=== PATIENT | male | born 1975 | race Caucasian/White ===

== ENCOUNTER 2018-06-02 19:02 | Inpatient (IN) ==
[2018-06-02 20:00] LABS: Basophils % 0.2 %; Eosinophils # 0.1 K/mcL (0.0-0.6); Eosinophils % 0.8 %; Hematocrit 32.9 % (37.5-50.1); Hemoglobin 10.8 g/dL (12.9-16.9); Immature Granulocytes % 0.3 % (0-4); Lymphocytes # 1.1 K/mcL (0.6-4.6); Lymphocytes % 12.9 %; Mean Corpuscular HGB Conc 32.8 g/dL (31.6-35.5); Mean Corpuscular Hemoglobin 28.1 pg (28.0-33.3); Mean Corpuscular Volume 85.5 fL (83.0-100.0); Mean Platelet Volume 9.2 fL (9.4-12.4); Monocytes # 0.9 K/mcL (0.0-1.3); Monocytes % 10.5 %; Neutrophils # 6.5 K/mcL (1.6-8.9); Platelet Count 364 K/mcL (140-400); Red Blood Count 3.85 M/mcL (4.19-5.50); Red Cell Distribution Width 13.3 % (11.5-14.5); Segmented Neutrophils % 75.3 %
[2018-06-02 20:02] LABS: INR 1.3; Prothrombin Time 14.3 Seconds (9.4-12.1)
[2018-06-02 20:05] LABS: Activated Partial Thrombo Time 33.7 Seconds (26.0-36.0)
[2018-06-02 20:46] LABS: Troponin I < 0.03 ng/mL (< 0.04)
[2018-06-02 21:04] LABS: Alanine Aminotransferase 77 Units/L (7-52); Albumin 3.3 g/dL (3.5-5.7); Albumin/Globulin Ratio 0.7 (1.1-2.2); Alkaline Phosphatase 107 Units/L (34-104); Aspartate Amino Transferase 62 Units/L (13-39); BUN/Creatinine Ratio 21 (6-26); Bilirubin,Total 0.4 mg/dL (0.3-1.0); Blood Urea Nitrogen 12 mg/dL (6-20); Calcium 9.2 mg/dL (8.6-10.3); Carbon Dioxide 26 mEq/L (23-29); Chloride 93 mEq/L (98-107); Globulin 4.5 g/dL (2.4-3.5); Glucose 91 mg/dL (70-105); Osmolality,Calculated 267 (280-300); Potassium 4.2 mEq/L (3.5-5.1); Sodium 129 mEq/L (136-145); Total Protein 7.8 g/dL (6.4-8.9); eGFR For African Americans > 60 (> 60); eGFR For Non-African Americans > 60 (> 60)
[2018-06-02] MEDS ORDERED: Naloxone 0.4 MG/ML INJ IVP PRN (22:48)
[2018-06-02] MEDS ORDERED: Vancomycin 1,000 MG VIAL ONE (22:49)
[2018-06-02] MEDS ORDERED: Water for inj. (sterile) 20 ML 20 ML IV ONE (22:49)
[2018-06-02] MEDS ORDERED: 0.9 % Sodium Chloride 250 ML ONE (22:49)
--- NOTE | 2018-06-02 22:49 | Emergency Department Note ---
Disposition Clinical Impression: Empyema of lung Disposition: Admitted As Inpatient Referrals: Jerrell Goodman MD [Primary Care Provider] - General Adult HPI - General Chief complaint: ED Shortness of Breath/Dyspnea Stated complaint: Lung Abscess per CT needs admitted for surgery Time Seen by Provider: 06/02/18 20:33 Source: patient Limitations: no limitations - History of Present Illness Pain Scale: 0 - Related Data Home Medications Medication Instructions Recorded Confirmed QVAR 40 mcg 11/07/15 Ventolin Hfa 11/07/15 Previous Rx's Medication Instructions Recorded GuaiFENesin ER [Mucinex] 1 - 2 tab PO BID PRN #40 tab 12/16/15 Hydrocodone/Acetaminophen [[place] 1 each PO Q4H PRN #4 tablet 12/16/15 5-325 Tablet] Polymyxn-B/Trimeth Opth Drops 1 drop LEFT EYE Q3H #10 ml 12/16/15 [Polytrim Opth Drops] Albuterol Sulfate [Ventolin Hfa] 2 inh IH 4-6XD PRN #1 hfa.aer.ad 08/12/16 Albuterol Sulfate [Albuterol 2 puff IH Q4HR PRN #1 hfa.aer.ad 09/10/16 Inhaler] Azithromycin [Zithromax] 250 mg PO DAILY #6 tablet 09/10/16 predniSONE [Prednisone] 50 mg PO DAILY #5 tablet 09/10/16 Albuterol Sulfate [Albuterol 2 puff IH Q4HR #1 hfa.aer.ad 11/06/16 Inhaler] predniSONE [PredniSONE] 10 mg PO DAILY #7 tablet 11/06/16 Albuterol Sulfate [Ventolin Hfa] 1 - 2 puff IH Q6HR #1 hfa.aer.ad 11/19/16 Azithromycin [Azithromycin 6-Tab 250 mg PO PER PKG DI #6 tab 11/19/16 Pack] Cetirizine HCl/Pseudoephedrine 1 each PO BID #14 tab.er.12h 11/19/16 [Cetirizine-Pse ER 5-120 mg Tab] predniSONE [PredniSONE] 60 mg PO DAILY 5 Days tablet 11/19/16 Albuterol Sulfate [Albuterol 2 puff IH Q4HR #1 hfa.aer.ad 11/24/16 Inhaler] EPINEPHrine [Epipen] 0.3 mg IM ONCE PRN #1 kit 11/25/16 Famotidine [Pepcid] 20 mg PO BID 30 Days tablet 11/25/16 Loratadine [Claritin] 5 mg PO DAILY 30 Days tablet 11/25/16 Azithromycin [Zithromax] 1 applic PO DAILY #6 tablet 12/20/16 Beclomethasone Diprop 80mcg [Qvar 2 puff IH BID #1 inhaler 12/20/16 80 mcg] Famotidine [Heartburn Prevention] 20 mg PO DAILY #30 tablet 12/20/16 PredniSONE [Deltasone] 20 mg PO DAILY #15 tablet 12/20/16 Clindamycin [Cleocin] 450 mg PO Q6HR 10 Days capsule 09/22/17 Ibuprofen [Motrin] 600 mg PO Q6HR PRN 7 Days tab 09/22/17 Cephalexin [Keflex] 500 mg PO QID #28 capsule 09/24/17 Sulfamethoxazole/Trimeth DS 1 each PO BID #14 tablet 09/24/17 [Bactrim DS] Naproxen [Naprosyn] 500 mg PO BID PRN #15 tablet 10/23/17 Albuterol Sulfate [Albuterol 2 puff IH Q4HR #1 puff 04/24/18 Inhaler] Azithromycin [Azithromycin 6-Tab 250 mg PO PER PKG DI #6 tab 04/24/18 Pack] Ibuprofen [Motrin] 600 mg PO Q6HR PRN #30 tab 04/24/18 methylPREDNISolone [Medrol] 1 each PO DAILY #1 pack 04/24/18 Allergies Allergy/AdvReac Type Severity Reaction Status Date / Time Penicillins AdvReac Rash Verified 06/02/18 19:19 Past Medical History - Past Medical History Medical history: Reports: asthma Surgical history: Reports: other Psychiatric history: Reports: no psych history - Social History Smoking Status: Light tobacco smoker Smokeless Tobacco Status: No Alcohol use: Reports: rarely Drug use: Reports: opiates, IV Drug Use Physical Exam - General Limitations: no limitations General appearance: alert, in no apparent distress Course - Reevaluation(s) Reevaluation #1: Attestation note I did independently examine and verified the physical examination findings evaluation workup and disposition of this patient. We had independent face-to- face examination and discussion. The patient was seen with the Yamilet Coles I examined this patient and my medical decision-making was reviewed with the Resident Physician/PIPE FITTER GAS PIPE/PA. I agree with the documented findings, disposition and treatment plan as described except to the extent set forth below. Briefly: 42-year-old male had a chest CT done this morning which showed a right hemithorax large empyema. Radiology gave this report to his primary care provider at about 11:13 AM. Patient comes in with mild shortness breath and cough history of hepatitis C and former IV drug user set is been clean for 3 months[address] Review[address] findings patient has labs which are essentially within normal limits will consult surgery and pulmonology to determine course of action and patient will be admitted to the hospitalist for IV antibiotics and further evaluation and treatment. Providing 30 minutes medical care service for this patient. Time: 21:39 Vital Signs Temperature 101.3 F H 06/02/18 19:20 Pulse Rate 74 06/02/18 19:20 Respiratory Rate 20 06/02/18 19:20 Blood Pressure 120/69 06/02/18 19:20 O2 Sat by Pulse Oximetry 95 06/02/18 19:20 Temperature 100.8 F H 06/02/18 20:22 Pulse Rate 67 06/02/18 20:22 Respiratory Rate 20 06/02/18 20:22 Blood Pressure 115/85 06/02/18 20:22 O2 Sat by Pulse Oximetry 95 06/02/18 20:22 Oxygen Delivery Oxygen Delivery Room Air Medical Decision Making - Lab Data Result diagrams: 06/02/18 19:44 06/02/18 19:44 Lab Results 06/02/18 06/02/18 06/02/18 Range/Units 19:44 19:44 19:44 WBC 8.7 (4.3-11.1) K/mcL RBC 3.85 L (4.19-5.50) M/mcL Hgb 10.8 L (12.9-16.9) g/dL Hct 32.9 L (37.5-50.1) % MCV 85.5 (83.0-100.0) fL MCH 28.1 (28.0-33.3) pg MCHC 32.8 (31.6-35.5) g/dL RDW 13.3 (11.5-14.5) % Plt Count 364 (140-400) K/mcL MPV 9.2 L (9.4-12.4) fL Immature Gran % 0.3 (0-4) % Seg Neutrophils % 75.3 % Lymphocytes % 12.9 % Monocytes % 10.5 % Eosinophils % 0.8 % Basophils % 0.2 % Neutrophils # 6.5 (1.6-8.9) K/mcL Lymphocytes # 1.1 (0.6-4.6) K/mcL Monocytes # 0.9 (0.0-1.3) K/mcL Eosinophils # 0.1 (0.0-0.6) K/mcL Basophils # 0.0 (0.0-0.2) K/mcL PT 14.3 H (9.4-12.1) Seconds INR 1.3 APTT 33.7 (26.0-36.0) Seconds Sodium 129 L (136-145) mEq/L Potassium 4.2 (3.5-5.1) mEq/L Chloride 93 L (98-107) mEq/L Carbon Dioxide 26 (23-29) mEq/L BUN 12 (6-20) mg/dL Creatinine 0.56 L (0.70-1.30) mg/dL Est GFR ( Amer) > 60 (> 60) Est GFR (Non-Af Amer) > 60 (> 60) BUN/Creatinine Ratio 21 (6-26) Glucose 91 (70-105) mg/dL Calculated Osmolality 267 L (280-300) Lactic Acid (0.5-2.2) mmol/L Calcium 9.2 (8.6-10.3) mg/dL Total Bilirubin 0.4 (0.3-1.0) mg/dL AST 62 H (13-39) Units/L ALT 77 H (7-52) Units/L Alkaline Phosphatase 107 H (34-104) Units/L Troponin I < 0.03 (< 0.04) ng/mL Serum Total Protein 7.8 (6.4-8.9) g/dL Albumin 3.3 L (3.5-5.7) g/dL Globulin 4.5 H (2.4-3.5) g/dL Albumin/Globulin Ratio 0.7 L (1.1-2.2) 06/02/18 Range/Units 19:44 WBC (4.3-11.1) K/mcL RBC (4.19-5.50) M/mcL Hgb (12.9-16.9) g/dL Hct (37.5-50.1) % MCV (83.0-100.0) fL MCH (28.0-33.3) pg MCHC (31.6-35.5) g/dL RDW (11.5-14.5) % Plt Count (140-400) K/mcL MPV (9.4-12.4) fL Immature Gran % (0-4) % Seg Neutrophils % % Lymphocytes % % Monocytes % % Eosinophils % % Basophils % % Neutrophils # (1.6-8.9) K/mcL Lymphocytes # (0.6-4.6) K/mcL Monocytes # (0.0-1.3) K/mcL Eosinophils # (0.0-0.6) K/mcL Basophils # (0.0-0.2) K/mcL PT (9.4-12.1) Seconds INR APTT (26.0-36.0) Seconds Sodium (136-145) mEq/L Potassium (3.5-5.1) mEq/L Chloride (98-107) mEq/L Carbon Dioxide (23-29) mEq/L BUN (6-20) mg/dL Creatinine (0.70-1.30) mg/dL Est GFR ( Amer) (> 60) Est GFR (Non-Af Amer) (> 60) BUN/Creatinine Ratio (6-26) Glucose (70-105) mg/dL Calculated Osmolality (280-300) Lactic Acid 1.1 (0.5-2.2) mmol/L Calcium (8.6-10.3) mg/dL Total Bilirubin (0.3-1.0) mg/dL AST (13-39) Units/L ALT (7-52) Units/L Alkaline Phosphatase (34-104) Units/L Troponin I (< 0.04) ng/mL Serum Total Protein (6.4-8.9) g/dL Albumin (3.5-5.7) g/dL Globulin (2.4-3.5) g/dL Albumin/Globulin Ratio (1.1-2.2)
--- NOTE | 2018-06-02 22:49 | Emergency Department Note ---
Disposition Clinical Impression: Empyema of lung Disposition: Admitted As Inpatient Condition: Good General Adult HPI - General Chief complaint: ED Shortness of Breath/Dyspnea Stated complaint: Lung Abscess per CT needs admitted for surgery Time Seen by Provider: 06/02/18 20:33 Source: patient Limitations: no limitations Nursing Notes Reviewed: Yes Vital Signs Reviewed: Yes - History of Present Illness HPI Narrative: Patient being sent by his primary care physician for a lung infection that he needs drained. Patient states he does have a history of hep C. Has had a history of pleural effusions or not the right. Denies any fevers. Denies any shortness of breath or chest pain. Pain Scale: 0 - Related Data Home Medications Medication Instructions Recorded Confirmed Albuterol Sulfate [Ventolin Hfa] 2 puff IH Q4-6H PRN 06/02/18 06/02/18 Beclomethasone Diprop 80mcg [QVAR 1 puff IH BID 06/02/18 06/02/18 80 mcg] Methadone Oral Concentrate 105 mg PO QAM 06/02/18 [Methadone] Previous Rx's Medication Instructions Recorded Cefdinir [Omnicef] 300 mg PO BID 28 Days #60 capsule 06/07/18 metroNIDAZOLE [Flagyl] 500 mg PO TID 7 Days #21 tablet 06/07/18 Allergies Allergy/AdvReac Type Severity Reaction Status Date / Time Penicillins AdvReac Rash Verified 06/02/18 19:19 All systems ED: reviewed and negative except as stated. Constitutional: Denies: fever, chills ENT ED: Denies: congestion Cardiovascular: Denies: chest pain, syncope Respiratory: Denies: cough, dyspnea Gastrointestinal: Denies: abdominal pain, nausea, vomiting, diarrhea Musculoskeletal: Denies: back pain, neck pain Integumentary: Denies: rash Neurological: Denies: headache, weakness Past Medical History - Past Medical History Attestation: Yes The following information was validated with the patient. Source: patient Medical history: Reports: asthma Surgical history: Reports: other Psychiatric history: Reports: no psych history - Social History Smoking Status: Light tobacco smoker Smokeless Tobacco Status: No Alcohol use: Reports: rarely Drug use: Reports: opiates, IV Drug Use Physical Exam - General Limitations: no limitations General appearance: alert, in no apparent distress - Head Head exam: atraumatic, normocephalic, normal inspection - Eye Eye exam: Present: normal appearance, PERRL, EOMI - ENT ENT exam: normal exam, normal oropharynx, mucous membranes moist - Neck Neck exam: Present: normal inspection, full ROM, trachea midline - Chest Chest inspection: Present: normal inspection, symmetric chest wall rise - Respiratory Respiratory exam: Present: other (Dimension the bases) - Cardiovascular Cardiovascular exam: Present: regular rate, normal rhythm, normal heart sounds - Abdominal Exam Abdominal exam: Present: soft, Non-Tender. Absent: tenderness, distention, guarding, rebound, rigidity, Pink's sign, Rovsing's sign, tenderness at McBurney's Point - Extremities Exam Extremities exam: Present: normal inspection, full ROM, normal capillary refill. Absent: tenderness, pedal edema - Back Exam Back exam: Present: normal inspection, full ROM. Absent: tenderness - Neurological Exam Neurological exam: Present: alert, oriented X3 - Psychiatric Psychiatric exam: Present: normal affect, normal mood - Skin Skin exam: Present: warm, dry, intact, normal color. Absent: rash, cyanosis, diaphoresis Course Course Narrative: Male patient presenting to the emergency department complaining of being sent here by his primary care physician for an lung abscess. He states that he has been diagnosed with hepatitis C and he went to his primary care physician today to seek treatment. However he did have a follow-up CT of his chest because he had a pleural effusion that he had drained previously. States that when he got to the primary care doctor today they told to come to the emergency room. Patient has no complaints currently he is resting comfortably in bed. His lung sounds are clear he is not in respiratory distress. Vitals are stable. Abdomen is soft nontender heart tones are normal. He is febrile. He does have an elevated liver enzyme profile. He does have a large loculated empyema on the right. I discussed this case with the zoning engineer condenser tester. They stated they will see the patient in the morning. We will admit to the hospital and start him on vancomycin and cefepime. He is allergic to penicillins. Blood cultures. He does not have leukocytosis. He is well-appearing. We will admit to the hospital. After looking at the CT patient does have a large empyema. I did discuss this with the zoning engineer to states that they will likely place a chest tube in the morning. - Consultations Consultation #1: Dr Acevedo accepted Pt in stable condition. Time: 22:07 Vital Signs Temperature 101.3 F H 06/02/18 19:20 Pulse Rate 74 06/02/18 19:20 Respiratory Rate 20 06/02/18 19:20 Blood Pressure 120/69 06/02/18 19:20 O2 Sat by Pulse Oximetry 95 06/02/18 19:20 Temperature 98.3 F 06/07/18 11:32 Pulse Rate 69 06/07/18 07:34 Respiratory Rate 16 06/07/18 11:32 Blood Pressure 104/74 06/07/18 11:32 O2 Sat by Pulse Oximetry 96 06/07/18 07:45 Oxygen Delivery Oxygen Delivery Room Air Medical Decision Making - Medical Records Medical records reviewed: Yes I reviewed the patient's medical records. - Lab Data Lab results reviewed: Yes I reviewed the patient's lab results. Result diagrams: 06/07/18 05:19 06/07/18 05:19 Lab Results 06/02/18 06/02/18 06/02/18 Range/Units 19:44 19:44 19:44 WBC 8.7 (4.3-11.1) K/mcL RBC 3.85 L (4.19-5.50) M/mcL Hgb 10.8 L (12.9-16.9) g/dL Hct 32.9 L (37.5-50.1) % MCV 85.5 (83.0-100.0) fL MCH 28.1 (28.0-33.3) pg MCHC 32.8 (31.6-35.5) g/dL RDW 13.3 (11.5-14.5) % Plt Count 364 (140-400) K/mcL MPV 9.2 L (9.4-12.4) fL Immature Gran % 0.3 (0-4) % Seg Neutrophils % 75.3 % Lymphocytes % 12.9 % Monocytes % 10.5 % Eosinophils % 0.8 % Basophils % 0.2 % Neutrophils # 6.5 (1.6-8.9) K/mcL Lymphocytes # 1.1 (0.6-4.6) K/mcL Monocytes # 0.9 (0.0-1.3) K/mcL Eosinophils # 0.1 (0.0-0.6) K/mcL Basophils # 0.0 (0.0-0.2) K/mcL PT 14.3 H (9.4-12.1) Seconds INR 1.3 APTT 33.7 (26.0-36.0) Seconds Sodium 129 L (136-145) mEq/L Potassium 4.2 (3.5-5.1) mEq/L Chloride 93 L (98-107) mEq/L Carbon Dioxide 26 (23-29) mEq/L BUN 12 (6-20) mg/dL Creatinine 0.56 L (0.70-1.30) mg/dL Est GFR ( Amer) > 60 (> 60) Est GFR (Non-Af Amer) > 60 (> 60) BUN/Creatinine Ratio 21 (6-26) Glucose 91 (70-105) mg/dL Calculated Osmolality 267 L (280-300) Lactic Acid (0.5-2.2) mmol/L Calcium 9.2 (8.6-10.3) mg/dL Total Bilirubin 0.4 (0.3-1.0) mg/dL AST 62 H (13-39) Units/L ALT 77 H (7-52) Units/L Alkaline Phosphatase 107 H (34-104) Units/L Troponin I < 0.03 (< 0.04) ng/mL Serum Total Protein 7.8 (6.4-8.9) g/dL Albumin 3.3 L (3.5-5.7) g/dL Globulin 4.5 H (2.4-3.5) g/dL Albumin/Globulin Ratio 0.7 L (1.1-2.2) Pleural pH (No Ref Range) pH Units Pleural Total Protein Pleural Albumin Pleural LDH Pleural Amylase 06/02/18 06/02/18 06/03/18 Range/Units 19:44 23:15 11:00 WBC (4.3-11.1) K/mcL RBC (4.19-5.50) M/mcL Hgb (12.9-16.9) g/dL Hct (37.5-50.1) % MCV (83.0-100.0) fL MCH (28.0-33.3) pg MCHC (31.6-35.5) g/dL RDW (11.5-14.5) % Plt Count (140-400) K/mcL MPV (9.4-12.4) fL Immature Gran % (0-4) % Seg Neutrophils % % Lymphocytes % % Monocytes % % Eosinophils % % Basophils % % Neutrophils # (1.6-8.9) K/mcL Lymphocytes # (0.6-4.6) K/mcL Monocytes # (0.0-1.3) K/mcL Eosinophils # (0.0-0.6) K/mcL Basophils # (0.0-0.2) K/mcL PT (9.4-12.1) Seconds INR APTT (26.0-36.0) Seconds Sodium (136-145) mEq/L Potassium (3.5-5.1) mEq/L Chloride (98-107) mEq/L Carbon Dioxide (23-29) mEq/L BUN (6-20) mg/dL Creatinine (0.70-1.30) mg/dL Est GFR ( Amer) (> 60) Est GFR (Non-Af Amer) (> 60) BUN/Creatinine Ratio (6-26) Glucose (70-105) mg/dL Calculated Osmolality (280-300) Lactic Acid 1.1 1.4 (0.5-2.2) mmol/L Calcium (8.6-10.3) mg/dL Total Bilirubin (0.3-1.0) mg/dL AST (13-39) Units/L ALT (7-52) Units/L Alkaline Phosphatase (34-104) Units/L Troponin I (< 0.04) ng/mL Serum Total Protein (6.4-8.9) g/dL Albumin (3.5-5.7) g/dL Globulin (2.4-3.5) g/dL Albumin/Globulin Ratio (1.1-2.2) Pleural pH 8.00 (No Ref Range) pH Units Pleural Total Protein Pleural Albumin Pleural LDH Pleural Amylase 06/03/18 Range/Units 11:00 WBC (4.3-11.1) K/mcL RBC (4.19-5.50) M/mcL Hgb (12.9-16.9) g/dL Hct (37.5-50.1) % MCV (83.0-100.0) fL MCH (28.0-33.3) pg MCHC (31.6-35.5) g/dL RDW (11.5-14.5) % Plt Count (140-400) K/mcL MPV (9.4-12.4) fL Immature Gran % (0-4) % Seg Neutrophils % % Lymphocytes % % Monocytes % % Eosinophils % % Basophils % % Neutrophils # (1.6-8.9) K/mcL Lymphocytes # (0.6-4.6) K/mcL Monocytes # (0.0-1.3) K/mcL Eosinophils # (0.0-0.6) K/mcL Basophils # (0.0-0.2) K/mcL PT (9.4-12.1) Seconds INR APTT (26.0-36.0) Seconds Sodium (136-145) mEq/L Potassium (3.5-5.1) mEq/L Chloride (98-107) mEq/L Carbon Dioxide (23-29) mEq/L BUN (6-20) mg/dL Creatinine (0.70-1.30) mg/dL Est GFR ( Amer) (> 60) Est GFR (Non-Af Amer) (> 60) BUN/Creatinine Ratio (6-26) Glucose (70-105) mg/dL Calculated Osmolality (280-300) Lactic Acid (0.5-2.2) mmol/L Calcium (8.6-10.3) mg/dL Total Bilirubin (0.3-1.0) mg/dL AST (13-39) Units/L ALT (7-52) Units/L Alkaline Phosphatase (34-104) Units/L Troponin I (< 0.04) ng/mL Serum Total Protein (6.4-8.9) g/dL Albumin (3.5-5.7) g/dL Globulin (2.4-3.5) g/dL Albumin/Globulin Ratio (1.1-2.2) Pleural pH (No Ref Range) pH Units Pleural Total Protein TNP Pleural Albumin TNP Pleural LDH TNP Pleural Amylase TNP - Radiology Data Radiology results reviewed: Yes I reviewed the patient's radiology results. Needle Aspiration CT 06/03/18 00:00 IMPRESSION: Successful CT guided placement of a right chest tube D/ / Jamil Peters MD / Jamil Peters MD Interpreting Provider: Jamil Peters MD Chest CT 06/04/18 11:00 IMPRESSION: Small residual right empyema/pleural effusion is identified. Right thoracostomy catheter is in satisfactory position. D/ / 06/04/2018 12:19:43 Shaggy Myers MD / [email or web address] Interpreting Provider: Shaggy Myers MD
--- NOTE | 2018-06-02 23:52 | Internal Med History&Physical ---
Date of Encounter: 06/03/18 Time of Encounter: 23:30 Internal Medicine - H&P: HPI Chief complaint: Fatigue, weakness, was told he had a luzmaria abscess today History of present illness: Mr. Finley is a 42 year old male with pmh of iV drug abuse who has been clean for 3 months says he was in the hospital about 3 weeks ago forback pain where he was noted to have apleural effusion and edyta a thoracentesis done after which he was discharged. He had an xray a week ago that showed fluid in the lungs, busays his doctor siad the fluid wasn't sufficient to be drained. He subsequenlty had a follow up CT scan done today and at his doctor's appointment , was told he had a lung abscess and advised to come to the ER. CT scan showed empyema. He was started on vanc and cefepime and pulmonary have been consulted for chest tube placement. He was noted to be febril in the ER. Patient says other than weakness and loss of appetitie, he has no other acute symptoms Past Med Surg Social Fam HX - Past Medical History Medical history: asthma Additional medical history: Hx of MRSA on R thumb Psychiatric history: no psych history - Past Surgical History Surgical History: other Additional surgical history: MRSA I&D - Social History Smoking Status: Light tobacco smoker Smokeless Tobacco Status: No Alcohol use: rarely Drug use: opiates, IV Drug Use Internal Medicine - H&P: Meds Albuterol Sulfate [Ventolin Hfa] 2 puff IH Q4-6H PRN 06/02/18 [History] Beclomethasone Diprop 80mcg [Qvar 80 mcg] 1 puff IH BID 06/02/18 [History] Methadone Oral Concentrate [Methadone] 105 mg PO QAM 06/02/18 [History] 3 Allergy/AdvReac Type Severity Reaction Status Date / Time Penicillins AdvReac Rash Verified 06/02/18 19:19 All Systems PM: A 10-system review of systems was performed and is negative for pertinent findings except as documented above in the HPI. - Constitutional Constitutional: fatigue - EENT Eyes: no change in vision, no discharge, no pain, no photophobia Ears: no ear discharge, no ear pain, no tinnitus Nose, mouth and throat: no dysphagia, no nasal discharge, no neck pain, no sore throat - Cardiovascular Cardiovascular ROS IM: no chest pain, no diaphoresis, no dyspnea, no lightheadedness, no palpitations, no syncope - Respiratory Respiratory: no cough, no dyspnea, no wheezing, no excessive phlegm production - Gastrointestinal Gastrointestinal: no abdominal pain, no diarrhea, no hematemesis, no hematochezia, no melena, no nausea, no vomiting - Musculoskeletal Musculoskeletal ROS IM: no numbness, no tingling - Integumentary Integumentary IM: no rash, no unusual bruising - Neurological Neurological ROS: no confusion, no convulsions, no focal weakness, no numbness, no tingling, no tremor(s) - Hematologic/Lymphatic Hematologic/Lymphatic: no easy bruising - Constitutional Vitals: Temp Pulse Resp BP Pulse Ox 98.8 F 70 20 123/71 97 06/02/18 22:41 06/02/18 22:41 06/02/18 22:41 06/02/18 22:41 06/02/18 22:41 - Head Head exam: Present: atraumatic, normocephalic - Eye Eye exam: Present: PERRL, conjuntiva pink, sclera anicteric Pupils: Present: PERRL - Neck Neck exam general surgery: Present: supple, trachea midline. Absent: lymphadenopathy - Respiratory Respiratory exam: Absent: accessory muscle use, rales, rhonchi, wheezes Additional comments: Decreased breath sounds in right lung base - Cardiovascular Cardiovascular exam: Present: RRR, +S1, +S2. Absent: diastolic murmur, gallop, rubs, systolic murmur - GI/Abdominal GI/Abdominal exam: Present: normal bowel sounds, soft, no peritoneal signs. Absent: distended, tenderness - Extremities Exam Extremities exam: Present: warm, radial pulses palpable and symmetrical. Absent : calf tenderness, cyanotic, pedal edema - Neurological Exam Neurological exam: Present: CN II-XII intact, oriented X3, no focal deficits. Absent: pronater drift, facial droop, speech deficit - Skin Skin exam: Present: dry, intact Internal Med - H&P Results - Labs CBC & Chem 7: 06/02/18 19:44 06/02/18 19:44 Labs: Short CBC 06/02/18 Range/Units 19:44 WBC 8.7 (4.3-11.1) K/mcL Hgb 10.8 L (12.9-16.9) g/dL Hct 32.9 L (37.5-50.1) % Plt Count 364 (140-400) K/mcL Neutrophils # 6.5 (1.6-8.9) K/mcL BMP 06/02/18 19:44 Sodium 129 L Potassium 4.2 Chloride 93 L Carbon Dioxide 26 BUN 12 Creatinine 0.56 L Glucose 91 Calcium 9.2 Cardiac Enzymes 06/02/18 Range/Units 19:44 Troponin I < 0.03 (< 0.04) ng/mL Liver Function 06/02/18 Range/Units 19:44 Total Bilirubin 0.4 (0.3-1.0) mg/dL AST 62 H (13-39) Units/L ALT 77 H (7-52) Units/L Alkaline Phosphatase 107 H (34-104) Units/L Albumin 3.3 L (3.5-5.7) g/dL - Assessment and plan (1) Empyema of lung Current Visit: Yes Status: Acute Assessment and plan: Start on broad spectrum antibiotics with vanc and cefepime. Monitor for rash in the setting of penicillin allergy. Levaquin is a consideration , but also contraindicated as patient is on methadone and may cause QT prolongation. F/U blood cultures. Pulmonary consulted and plan for chest tube in am (2) Sepsis Current Visit: Yes Status: Acute Assessment and plan: Secondary to empyema. On antibiotics. Plan for chest tube in am Qualifiers: Sepsis type: sepsis due to unspecified organism Qualified Code(s): A41.9 - Sepsis, unspecified organism (3) Substance abuse Current Visit: Yes Status: Acute Assessment and plan: On methadone (4) DVT prophylaxis Current Visit: Yes Status: Acute Assessment and plan: scds - Time Spent With Patient Total time spent is greater than 50% in coordination of care (as documented) at patient's floor/unit and/or counseling patient:
--- NOTE | 2018-06-03 13:18 | Pulmonology Consult Note ---
Date of Encounter: 06/03/18 Time of Encounter: 08:00 Assessment and Plan (1) Empyema of lung Current Visit: Yes Status: Acute Patient had a recent pneumonia followed by Renzo perezonic mayuri. Patient then received appropriate IV antibiotics after this developed this loculated empyema which needed tube thoracostomy. According to MIST trial there is no clinical significant difference between large bore medium bore chest tube , so patient to get a medium bore chest tube initially then it is not resolving we will do large-bore chest tube. Spoke to Dr. Peters interventional radiology agreed to put a 12-Hungarian medium bore chest tube was successfully placed on the right side had evacuation of pus history of brain 100 mL in the atrium after I put some suction is certainly drainable 60. I gave 10 mg of tPA through the chest tube and leave for 2 hours and drain it. Patient is a pocket of the medial side of the right lower lobe discuss with interventional radiologist very hard to drain the pocket. We will repeat a CT chest tomorrow and see the radiographic resolution will try another 2 days of tPA if it does not work he might need cardiothoracic evaluation large-bore chest tube. Consult ID for long-term antibiotics looks like he may need at least 4 weeks of antibiotics. Patient and his family was updated SINCE were answered. We will continue to follow. History of Present Illness Consult date: 06/03/18 Requesting physician: Yamilet Coles Reason for consult: pleural effusion, abnormal CXR/CT Chief complaint: Abnormal CT Scan History of present illness: 42-year-old male with past medical history of IV drug abuse says that he is clean for past 3 months had a recent episode of pneumonia which for which he was treated in the ER on May 24 after that he developed a pleural effusion May 27 he was 750 cc of Pleural Fluid As an Outpatient by Interventional Radiology Looks like the Pleural Fluid Culture Grew StreptococcusThat Time and Was Looks like Complicated Parapneumonic Effusion he was treated with antibiotics as an outpatient and he failed antibiotic therapy as he developed loculated empyema. Series scan showed 2 pockets one of the right lower lobe on lateral side and one is in the medial side is very hard to get. Patient denies any fever or chills, denies any constitutional symptoms, denies any chest pain, denies any cough or sputum production. Patient denies any headache or any other neuro symptoms, denies any abdominal symptoms. Pulmonary was consult from the ER because patient had a loculated empyema recommended large-bore chest tube drainage. Past Med Surg Social Fam HX - Past Medical History Medical history: asthma Additional medical history: Hx of MRSA on R thumb Psychiatric history: no psych history - Past Surgical History Surgical History: other Additional surgical history: MRSA I&D - Social History Smoking Status: Light tobacco smoker Smokeless Tobacco Status: No Alcohol use: rarely Drug use: opiates, IV Drug Use Medications and Allergies Albuterol Sulfate [Ventolin Hfa] 2 puff IH Q4-6H PRN 06/02/18 [History] Beclomethasone Diprop 80mcg [Qvar 80 mcg] 1 puff IH BID 06/02/18 [History] Methadone Oral Concentrate [Methadone] 105 mg PO QAM 06/02/18 [History] 3 Allergy/AdvReac Type Severity Reaction Status Date / Time Penicillins AdvReac Rash Verified 06/02/18 19:19 All Systems: The remainder of the systems were reviewed and are negative Physical Examination Vital Signs: Vital Signs, Last 4 Hours Temp Pulse Resp BP Pulse Ox 06/03/18 12:19 100.5 F H 69 69 107/62 95 Auscultation: right: diminished breath sounds Results - Laboratory Findings CBC and BMP: 06/03/18 14:00 06/03/18 14:00 PT/INR, D-dimer PT 14.3 Seconds (9.4-12.1) H 06/02/18 19:44 Abnormal lab findings: Abnormal lab results RBC 3.85 M/mcL (4.19-5.50) L 06/02/18 19:44 Hgb 10.8 g/dL (12.9-16.9) L 06/02/18 19:44 Hct 32.9 % (37.5-50.1) L 06/02/18 19:44 MPV 9.2 fL (9.4-12.4) L 06/02/18 19:44 PT 14.3 Seconds (9.4-12.1) H 06/02/18 19:44 Sodium 129 mEq/L (136-145) L 06/02/18 19:44 Chloride 93 mEq/L (98-107) L 06/02/18 19:44 Creatinine 0.56 mg/dL (0.70-1.30) L 06/02/18 19:44 Calculated Osmolality 267 (280-300) L 06/02/18 19:44 AST 62 Units/L (13-39) H 06/02/18 19:44 ALT 77 Units/L (7-52) H 06/02/18 19:44 Alkaline Phosphatase 107 Units/L (34-104) H 06/02/18 19:44 Albumin 3.3 g/dL (3.5-5.7) L 06/02/18 19:44 Globulin 4.5 g/dL (2.4-3.5) H 06/02/18 19:44 Albumin/Globulin Ratio 0.7 (1.1-2.2) L 06/02/18 19:44 - Clinical Findings Intake & Output: Intake & Output 06/02/18 06/03/18 06/03/18 23:59 07:59 15:59 Output Total 500 / 500 Balance -500 / -500 Consult Discharge Plan - Plan Referrals: Danilo Faustin MD [Primary Care Provider] -
--- NOTE | 2018-06-03 13:49 | Internal Med Progress Note ---
Date of Encounter: 06/03/18 Time of Encounter: 13:49 - Assessment and plan (1) Empyema of lung Current Visit: Yes Status: Acute Assessment and plan: 06/02 Start on broad spectrum antibiotics with vanc and cefepime. Monitor for rash in the setting of penicillin allergy. Levaquin is a consideration , but also contraindicated as patient is on methadone and may cause QT prolongation. F /U blood cultures. Pulmonary consulted and plan for chest tube in am 06/03 patient was seen by pulmonology chest tube was placed today by IR does have thick green drainage her to intermittent suction. Continue with cefepime and vancomycin clindamycin has been added per pulmonology- We will consult ID We will give [place] for pain as well as lidocaine patch and muscle relaxer Flexeril. (2) Sepsis Current Visit: Yes Status: Acute Assessment and plan: Secondary to empyema. Continue with vancomycin clindamycin and cefepime. Infectious disease has been consulted and awaiting blood cultures Chest tube in place Qualifiers: Sepsis type: sepsis due to unspecified organism Qualified Code(s): A41.9 - Sepsis, unspecified organism (3) Substance abuse Current Visit: Yes Status: Acute Assessment and plan: On methadone-however patient cannot clarify dosage. We will obtain clarification in the a.m. (4) DVT prophylaxis Current Visit: Yes Status: Acute Assessment and plan: scds - Time Spent With Patient Total time spent is greater than 50% in coordination of care (as documented) at patient's floor/unit and/or counseling patient: - Subjective Interval history: Patient seen and examined at bedside. Patient has chest tube to right chest wall no crepitus noted. Draining thick green fluid. Complaints of pain at insertion site lung Sounds are clear bilaterally - Constitutional Vitals: Temp Pulse Resp BP Pulse Ox 100.5 F H 69 69 107/62 95 06/03/18 12:19 06/03/18 12:19 06/03/18 12:19 06/03/18 12:19 06/03/18 12:19 Internal Medicine: Result - Labs CBC & Chem 7: 06/03/18 14:00 06/03/18 14:00 - ABG Interpretation ABG results: PT/INR, D-dimer PT 14.3 Seconds (9.4-12.1) H 06/02/18 19:44 Consult Discharge Plan - Plan Referrals: Danlio Faustin MD [Primary Care Provider] -
[2018-06-03] MEDS: Beclomethasone 80mcg MDI IH SCH ×2 (14:25→21:54)
[2018-06-03 14:26] LABS: Basophils % 0.2 %; Eosinophils # 0.1 K/mcL (0.0-0.6); Eosinophils % 0.5 %; Hematocrit 35.4 % (37.5-50.1); Hemoglobin 11.6 g/dL (12.9-16.9); Immature Granulocytes % 0.5 % (0-4); Lymphocytes # 0.9 K/mcL (0.6-4.6); Lymphocytes % 9.1 %; Mean Corpuscular HGB Conc 32.8 g/dL (31.6-35.5); Mean Corpuscular Hemoglobin 27.8 pg (28.0-33.3); Mean Corpuscular Volume 84.7 fL (83.0-100.0); Mean Platelet Volume 9.6 fL (9.4-12.4); Monocytes % 10.1 %; Neutrophils # 7.4 K/mcL (1.6-8.9); Platelet Count 338 K/mcL (140-400); Red Blood Count 4.18 M/mcL (4.19-5.50); Red Cell Distribution Width 13.3 % (11.5-14.5); Segmented Neutrophils % 79.6 %
[2018-06-03] MEDS ORDERED: ALTEPLASE 100 MG/100 ML IVP ONE (14:31)
[2018-06-03 14:35] LABS: BUN/Creatinine Ratio 17 (6-26); Blood Urea Nitrogen 10 mg/dL (6-20); Calcium 9.1 mg/dL (8.6-10.3); Carbon Dioxide 28 mEq/L (23-29); Chloride 93 mEq/L (98-107); Glucose 119 mg/dL (70-105); Magnesium 1.7 mg/dL (1.6-2.6); Osmolality,Calculated 268 (280-300); Phosphorous 3.6 mg/dL (2.7-4.5); Sodium 129 mEq/L (136-145); eGFR For African Americans > 60 (> 60); eGFR For Non-African Americans > 60 (> 60)
[2018-06-03 14:36] LABS: Albumin 3.1 g/dL (3.5-5.7); Albumin/Globulin Ratio 0.7 (1.1-2.2); Bilirubin,Direct 0.1 mg/dL (0.0-0.2); Bilirubin,Indirect 0.3 mg/dL (0.0-1.2); Bilirubin,Total 0.4 mg/dL (0.3-1.0); Globulin 4.5 g/dL (2.4-3.5); Total Protein 7.6 g/dL (6.4-8.9)
[2018-06-03] MEDS: 0.9 % Sodium Chloride 1,000 ML IVC SCH ×2 (14:38→15:05)
[2018-06-03] MEDS: Cefepime HCl 2,000 MG in Water for inj. (sterile) 20 ML 20 ML IVP SCH ×3 (14:39→23:37)
[2018-06-03] MEDS ORDERED: Alteplase (Cathflo) 10 MG in 0.9 % Sodium Chloride 30 ML IX ONE (14:44)
[2018-06-03] MEDS ORDERED: Acetaminophen 325 MG TABLET PO PRN (14:57)
[2018-06-03] MEDS ORDERED: *HR* OxyCODONE/APAP 10/325 TABLET PO ONE (16:14)
[2018-06-03] MEDS: Clindamycin 600 MG/50 ML 600 MG/50 ML IV.SOLN IVPB SCH ×2 (16:23→23:39)
[2018-06-03] MEDS: *HR* HYDROcodone/Acet 5/325 mg TABLET PO PRN (19:48)
[2018-06-03] MEDS ORDERED: Cefepime HCl 2,000 MG in Water for inj. (sterile) 20 ML 20 ML IVP ONE (21:50)
[2018-06-04] MEDS: Cefepime HCl 2,000 MG in Water for inj. (sterile) 20 ML 20 ML IVP SCH ×4 (01:56→22:22)
[2018-06-04] MEDS: 0.9 % Sodium Chloride 1,000 ML IVC SCH ×2 (04:17→08:20)
[2018-06-04 05:24] LABS: Basophils % 0.3 %; Eosinophils # 0.1 K/mcL (0.0-0.6); Eosinophils % 1.3 %; Hematocrit 34.7 % (37.5-50.1); Hemoglobin 11.4 g/dL (12.9-16.9); Immature Granulocytes % 0.5 % (0-4); Lymphocytes # 0.8 K/mcL (0.6-4.6); Lymphocytes % 13.5 %; Mean Corpuscular HGB Conc 32.9 g/dL (31.6-35.5); Mean Corpuscular Hemoglobin 27.9 pg (28.0-33.3); Mean Corpuscular Volume 84.8 fL (83.0-100.0); Mean Platelet Volume 9.5 fL (9.4-12.4); Monocytes # 0.8 K/mcL (0.0-1.3); Monocytes % 12.9 %; Neutrophils # 4.5 K/mcL (1.6-8.9); Platelet Count 318 K/mcL (140-400); Red Blood Count 4.09 M/mcL (4.19-5.50); Red Cell Distribution Width 13.2 % (11.5-14.5); Segmented Neutrophils % 71.5 %
[2018-06-04 05:37] LABS: BUN/Creatinine Ratio 20 (6-26); Blood Urea Nitrogen 11 mg/dL (6-20); Calcium 8.9 mg/dL (8.6-10.3); Carbon Dioxide 29 mEq/L (23-29); Chloride 96 mEq/L (98-107); Glucose 112 mg/dL (70-105); Osmolality,Calculated 272 (280-300); Sodium 131 mEq/L (136-145); eGFR For African Americans > 60 (> 60); eGFR For Non-African Americans > 60 (> 60)
--- NOTE | 2018-06-04 07:25 | Electrocardiograph Report ---
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
[2018-06-04] MEDS: *HR* HYDROcodone/Acet 5/325 mg TABLET PO PRN (07:56)
[2018-06-04] MEDS: Clindamycin 600 MG/50 ML 600 MG/50 ML IV.SOLN IVPB SCH ×3 (07:57→23:19)
[2018-06-04] MEDS: Beclomethasone 80mcg MDI IH SCH ×2 (08:24→21:24)
--- NOTE | 2018-06-04 08:49 | Pulmonology Progress Note ---
Date of Encounter: 06/04/18 Time of Encounter: 08:30 Assessment and Plan (1) Empyema of lung Current Visit: Yes Status: Acute After the intrapleural TPA yesterday evening the chest tube drianed 60-[address] chest showed almost near resolution of empyema small amount remaining. To Plan another dose of intrapleural t-PA tomorrow given 1 more day with suction . Will do Chest x-ray before pulling out the tube . Since there is one pocket and the medially in the sub pulmonic region which is very small which cannot be drained by IR patient might need at least 3-4 weeks of antibiotics ID will be seeing him Wednesday and decide about antibiotics and duration of therapy. Subjective Principal diagnosis: Empyema Right Lung Interval history: Has some pain in the right side where the chest tube was removed patient had almost 60-70 drainage after I put intrapleural t-PA. Body fluid cultures growing gram-positive organism few days ago the body fluid culture grew Streptococcus intermedius hopefully this the same organism for time being we will keep vancomycin once the species is confirmed and sensitivity we can de- escalate antibiotics. Patient denies any fever or chills does not look toxic except for the chest pain around the chest tube insertion site otherwise he does not have any complaints is doing well. Objective PUL Vital signs: Last Vital Signs Temp 99.6 F 06/04/18 07:52 Pulse 62 06/04/18 07:52 Resp 16 06/04/18 08:26 BP 107/65 06/04/18 07:52 Pulse Ox 93 06/04/18 08:26 Auscultation: right: diminished breath sounds Results - Laboratory Findings CBC and BMP: 06/04/18 04:39 06/04/18 04:39 PT/INR, D-dimer PT 14.3 Seconds (9.4-12.1) H 06/02/18 19:44 Abnormal lab findings: Abnormal lab results RBC 4.09 M/mcL (4.19-5.50) L 06/04/18 04:39 Hgb 11.4 g/dL (12.9-16.9) L 06/04/18 04:39 Hct 34.7 % (37.5-50.1) L 06/04/18 04:39 MCH 27.9 pg (28.0-33.3) L 06/04/18 04:39 PT 14.3 Seconds (9.4-12.1) H 06/02/18 19:44 Sodium 131 mEq/L (136-145) L 06/04/18 04:39 Chloride 96 mEq/L (98-107) L 06/04/18 04:39 Creatinine 0.55 mg/dL (0.70-1.30) L 06/04/18 04:39 Glucose 112 mg/dL (70-105) H 06/04/18 04:39 Calculated Osmolality 272 (280-300) L 06/04/18 04:39 Lactic Acid 2.4 mmol/L (0.5-2.2) H 06/03/18 14:00 AST 81 Units/L (13-39) H 06/03/18 14:00 ALT 83 Units/L (7-52) H 06/03/18 14:00 Alkaline Phosphatase 115 Units/L (34-104) H 06/03/18 14:00 Albumin 3.1 g/dL (3.5-5.7) L 06/03/18 14:00 Globulin 4.5 g/dL (2.4-3.5) H 06/03/18 14:00 Albumin/Globulin Ratio 0.7 (1.1-2.2) L 06/03/18 14:00 - Clinical Findings Intake & Output: Intake & Output 06/03/18 06/04/18 06/04/18 23:59 07:59 15:59 Intake Total 340 / 340 1850 / 1850 Output Total 180 / 180 1390 / 1390 Balance 160 / 160 460 / 460 Weight 65.2 kg Consult Discharge Plan - Plan Referrals: Danilo Faustin MD [Primary Care Provider] -
[2018-06-04] MEDS ORDERED: Methadone Oral Concentrate 10 MG/ML PO SCH (09:00)
--- NOTE | 2018-06-04 14:21 | Internal Med Progress Note ---
Date of Encounter: 06/04/18 Time of Encounter: 14:21 - Assessment and plan (1) Empyema of lung Current Visit: Yes Status: Acute Assessment and plan: 06/02 Start on broad spectrum antibiotics with vanc and cefepime. Monitor for rash in the setting of penicillin allergy. Levaquin is a consideration , but also contraindicated as patient is on methadone and may cause QT prolongation. F /U blood cultures. Pulmonary consulted and plan for chest tube in am 06/03 patient was seen by pulmonology chest tube was placed today by IR does have thick green drainage her to intermittent suction. Continue with cefepime and vancomycin clindamycin has been added per pulmonology- We will consult ID We will give [place] for pain as well as lidocaine patch and muscle relaxer Flexeril. 06/[address] today shows small residual right empyema/pleural effusion is identified right thoracostomy catheter is in satisfactory position. Continue with pain management patient started on methadone continue lidocaine patch and muscle relaxer as needed ID has been consulted chest tube fluid shows gram-positive cocci currently on cefepime Vancomycin and clindamycin-blood cultures are pending (2) Sepsis Current Visit: Yes Status: Acute Assessment and plan: Secondary to empyema. Continue with vancomycin clindamycin and cefepime. Infectious disease has been consulted and awaiting blood cultures Chest tube in place 06/04 secondary to empyema we will continue with vancomycin clindamycin and cefepime infectious disease has been consulted -preliminary pleural fluid culture is positive for gram-positive cocci Qualifiers: Sepsis type: sepsis due to unspecified organism Qualified Code(s): A41.9 - Sepsis, unspecified organism (3) Substance abuse Current Visit: Yes Status: Acute Assessment and plan: On methadone-however patient cannot clarify dosage. We will obtain clarification in the a.m. 06/04 continue with methadone (4) DVT prophylaxis Current Visit: Yes Status: Acute Assessment and plan: scds (5) Hyponatremia Current Visit: Yes Status: Acute Assessment and plan: 1 sodium was 129 yesterday 1.1 today we will continue with IV fluids - Time Spent With Patient Total time spent is greater than 50% in coordination of care (as documented) at patient's floor/unit and/or counseling patient: - Subjective Interval history: Patient seen and examined at bedside. Patient has chest tube to right chest wall no crepitus noted. Continues to drain green to serosanguineous drainage. States pain is improved - Constitutional Vitals: Temp Pulse Resp BP Pulse Ox 98.8 F 69 18 105/67 96 06/04/18 11:22 06/04/18 11:22 06/04/18 11:22 06/04/18 11:22 06/04/18 11:22 General appearance: Present: A&O X 3 - Head Head exam: Present: atraumatic, normocephalic - Eye Eye exam: Present: PERRL, conjuntiva pink, sclera anicteric Pupils: Present: PERRL - Neck Neck exam general surgery: Present: supple, trachea midline. Absent: lymphadenopathy - Respiratory Respiratory exam: Present: CTAB. Absent: accessory muscle use, rales, rhonchi, wheezes - Cardiovascular Cardiovascular exam: Present: RRR, +S1, +S2. Absent: diastolic murmur, gallop, rubs, systolic murmur - GI/Abdominal GI/Abdominal exam: Present: normal bowel sounds, soft, no peritoneal signs. Absent: distended, tenderness - Extremities Exam Extremities exam: Present: warm, radial pulses palpable and symmetrical. Absent : calf tenderness, cyanotic, pedal edema - Neurological Exam Neurological exam: Present: CN II-XII intact, oriented X3, no focal deficits. Absent: pronater drift, facial droop, speech deficit - Skin Skin exam: Present: dry, intact Internal Medicine: Result - Labs CBC & Chem 7: 06/04/18 04:39 06/04/18 04:39 Labs: Short CBC 06/03/18 06/04/18 Range/Units 14:00 04:39 WBC 9.4 6.2 (4.3-11.1) K/mcL Hgb 11.6 L 11.4 L (12.9-16.9) g/dL Hct 35.4 L 34.7 L (37.5-50.1) % Plt Count 338 318 (140-400) K/mcL Neutrophils # 7.4 4.5 (1.6-8.9) K/mcL BMP 06/03/18 06/04/18 14:00 04:39 Sodium 129 L 131 L Potassium 4.0 4.0 Chloride 93 L 96 L Carbon Dioxide 28 29 BUN 10 11 Creatinine 0.59 L 0.55 L Glucose 119 H 112 H Calcium 9.1 8.9 Liver Function 06/03/18 Range/Units 14:00 Total Bilirubin 0.4 (0.3-1.0) mg/dL Direct Bilirubin 0.1 (0.0-0.2) mg/dL AST 81 H (13-39) Units/L ALT 83 H (7-52) Units/L Alkaline Phosphatase 115 H (34-104) Units/L Albumin 3.1 L (3.5-5.7) g/dL - ABG Interpretation ABG results: PT/INR, D-dimer PT 14.3 Seconds (9.4-12.1) H 06/02/18 19:44 - Impressions Impressions Chest CT 06/04/18 11:00 IMPRESSION: Small residual right empyema/pleural effusion is identified. Right thoracostomy catheter is in satisfactory position. D/ / 06/04/2018 12:19:43 Shaggy Myers MD / [email or web address] Interpreting Provider: Shaggy Myers MD Consult Discharge Plan - Plan Referrals: Danilo Faustin MD [Primary Care Provider] -
[2018-06-05] MEDS: Cefepime HCl 2,000 MG in Water for inj. (sterile) 20 ML 20 ML IVP SCH ×3 (06:29→23:35)
[2018-06-05] MEDS: 0.9 % Sodium Chloride 1,000 ML IVC SCH ×2 (06:30→23:34)
[2018-06-05 06:32] LABS: Basophils % 0.5 %; Eosinophils # 0.1 K/mcL (0.0-0.6); Eosinophils % 2.2 %; Hematocrit 34.7 % (37.5-50.1); Hemoglobin 11.4 g/dL (12.9-16.9); Immature Granulocytes % 0.5 % (0-4); Lymphocytes # 1.5 K/mcL (0.6-4.6); Lymphocytes % 23.3 %; Mean Corpuscular HGB Conc 32.9 g/dL (31.6-35.5); Mean Corpuscular Hemoglobin 27.8 pg (28.0-33.3); Mean Corpuscular Volume 84.6 fL (83.0-100.0); Mean Platelet Volume 9.2 fL (9.4-12.4); Monocytes # 0.8 K/mcL (0.0-1.3); Monocytes % 12.4 %; Neutrophils # 3.9 K/mcL (1.6-8.9); Platelet Count 353 K/mcL (140-400); Red Cell Distribution Width 13.4 % (11.5-14.5); Segmented Neutrophils % 61.1 %
[2018-06-05 06:51] LABS: Platelet Estimate Normal (Normal); Reactive Lymphocytes Present (Not Present)
[2018-06-05 06:56] LABS: BUN/Creatinine Ratio 16 (6-26); Blood Urea Nitrogen 8 mg/dL (6-20); Carbon Dioxide 28 mEq/L (23-29); Chloride 99 mEq/L (98-107); Glucose 96 mg/dL (70-105); Osmolality,Calculated 278 (280-300); Potassium 3.8 mEq/L (3.5-5.1); Sodium 135 mEq/L (136-145); eGFR For African Americans > 60 (> 60); eGFR For Non-African Americans > 60 (> 60)
[2018-06-05] MEDS: Beclomethasone 80mcg MDI IH SCH ×2 (07:55→21:44)
[2018-06-05] MEDS: Clindamycin 600 MG/50 ML 600 MG/50 ML IV.SOLN IVPB SCH ×2 (08:39→15:31)
[2018-06-05] MEDS ORDERED: Methadone Oral Concentrate 50 MG/5 ML UDC PO SCH (09:00)
[2018-06-05] MEDS: Methadone Oral Concentrate 10 MG/ML PO SCH (09:58)
--- NOTE | 2018-06-05 10:38 | Pulmonology Consult Note ---
Date of Encounter: 06/05/18 Time of Encounter: 09:00 Assessment and Plan (1) Empyema of lung Current Visit: Yes Status: Acute Past Med Surg Social Fam HX - Past Medical History Medical history: asthma Additional medical history: Hx of MRSA on R thumb Psychiatric history: no psych history - Past Surgical History Surgical History: other Additional surgical history: MRSA I&D - Social History Smoking Status: Light tobacco smoker Smokeless Tobacco Status: No Alcohol use: rarely Drug use: opiates, IV Drug Use Medications and Allergies Albuterol Sulfate [Ventolin Hfa] 2 puff IH Q4-6H PRN 06/02/18 [History] Beclomethasone Diprop 80mcg [Qvar 80 mcg] 1 puff IH BID 06/02/18 [History] Methadone Oral Concentrate [Methadone] 105 mg PO QAM 06/02/18 [History] 3 Allergy/AdvReac Type Severity Reaction Status Date / Time Penicillins AdvReac Rash Verified 06/02/18 19:19 All Systems: The remainder of the systems were reviewed and are negative Physical Examination Vital Signs: Vital Signs, Last 4 Hours Temp Pulse Resp BP Pulse Ox 06/05/18 08:01 98.2 F 55 16 113/74 97 06/05/18 07:55 16 95 Results - Laboratory Findings CBC and BMP: 06/05/18 06:01 06/05/18 06:01 PT/INR, D-dimer PT 14.3 Seconds (9.4-12.1) H 06/02/18 19:44 Abnormal lab findings: Abnormal lab results RBC 4.10 M/mcL (4.19-5.50) L 06/05/18 06:01 Hgb 11.4 g/dL (12.9-16.9) L 06/05/18 06:01 Hct 34.7 % (37.5-50.1) L 06/05/18 06:01 MCH 27.8 pg (28.0-33.3) L 06/05/18 06:01 MPV 9.2 fL (9.4-12.4) L 06/05/18 06:01 Reactive Lymphocytes Present (Not Present) A 06/05/18 06:01 PT 14.3 Seconds (9.4-12.1) H 06/02/18 19:44 Sodium 135 mEq/L (136-145) L 06/05/18 06:01 Creatinine 0.50 mg/dL (0.70-1.30) L 06/05/18 06:01 Calculated Osmolality 278 (280-300) L 06/05/18 06:01 Lactic Acid 2.4 mmol/L (0.5-2.2) H 06/03/18 14:00 AST 81 Units/L (13-39) H 06/03/18 14:00 ALT 83 Units/L (7-52) H 06/03/18 14:00 Alkaline Phosphatase 115 Units/L (34-104) H 06/03/18 14:00 Albumin 3.1 g/dL (3.5-5.7) L 06/03/18 14:00 Globulin 4.5 g/dL (2.4-3.5) H 06/03/18 14:00 Albumin/Globulin Ratio 0.7 (1.1-2.2) L 06/03/18 14:00 - Clinical Findings Intake & Output: Intake & Output 06/04/18 06/05/18 06/05/18 23:59 07:59 15:59 Intake Total 1320 / 1320 290 / 290 Output Total 345 / 345 760 / 760 500 / 500 Balance 975 / 975 -470 / -470 -500 / -500 Weight 61.2 kg 61.2 kg Consult Discharge Plan - Plan Referrals: Danilo Faustin MD [Primary Care Provider] -
[2018-06-05] MEDS ORDERED: ALTEPLASE IVPB ONE (11:29)
[2018-06-05] MEDS ORDERED: Alteplase (Cathflo) 10 MG in 0.9 % Sodium Chloride 30 ML IX ONE (11:33)
--- NOTE | 2018-06-05 14:00 | Internal Med Progress Note ---
Date of Encounter: 06/05/18 Time of Encounter: 13:00 - Assessment and plan (1) Empyema of lung Current Visit: Yes Status: Acute Assessment and plan: 06/02 Start on broad spectrum antibiotics with vanc and cefepime. Monitor for rash in the setting of penicillin allergy. Levaquin is a consideration , but also contraindicated as patient is on methadone and may cause QT prolongation. F /U blood cultures. Pulmonary consulted and plan for chest tube in am 06/03 patient was seen by pulmonology chest tube was placed today by IR does have thick green drainage her to intermittent suction. Continue with cefepime and vancomycin clindamycin has been added per pulmonology- We will consult ID We will give [place] for pain as well as lidocaine patch and muscle relaxer Flexeril. 06/[address] today shows small residual right empyema/pleural effusion is identified right thoracostomy catheter is in satisfactory position. Continue with pain management patient started on methadone continue lidocaine patch and muscle relaxer as needed ID has been consulted chest tube fluid shows gram-positive cocci currently on cefepime Vancomycin and clindamycin-blood cultures are pending 06/05 - Drainage much improved - chest tube fluid shows gram positive cocci Cont with Vanc,cefepime and clindamycin- There is one pocket medially in the sub pulmonic region which is very small and cannot be drained by IR - patient may need at least 3-4 weeks of antibiotics per ID - will see on Wednesday and decide ATB and duration - Discussed case with pulmonology (2) Sepsis Current Visit: Yes Status: Acute Assessment and plan: Secondary to empyema. Continue with vancomycin clindamycin and cefepime. Infectious disease has been consulted and awaiting blood cultures Chest tube in place 06/04 secondary to empyema we will continue with vancomycin clindamycin and cefepime infectious disease has been consulted -preliminary pleural fluid culture is positive for gram-positive cocci 06/05 secondary to empyema we will continue with vancomycin clindamycin and cefepime infectious disease consulted preliminary pleural fluid culture is positive for gram-positive cocci Qualifiers: Sepsis type: sepsis due to unspecified organism Qualified Code(s): A41.9 - Sepsis, unspecified organism (3) Substance abuse Current Visit: Yes Status: Acute Assessment and plan: On methadone-however patient cannot clarify dosage. We will obtain clarification in the a.m. 06/04 continue with methadone 06/05 we will continue with methadone. Patient appears to be stable at this time (4) Hyponatremia Current Visit: Yes Status: Acute Assessment and plan: 1 sodium was 129 yesterday 1.1 today we will continue with IV fluids (5) DVT prophylaxis Current Visit: Yes Status: Acute Assessment and plan: scds - Time Spent With Patient Total time spent is greater than 50% in coordination of care (as documented) at patient's floor/unit and/or counseling patient: - Subjective Interval history: Patient seen and examined at bedside. Patient has chest tube to right chest wall no crepitus noted. Patient feels his pain is controlled at this time. Chest tube is patent and draining mostly serous sanguineous appears to be much improved. - Constitutional Vitals: Temp Pulse Resp BP Pulse Ox 98.0 F 50 16 113/69 96 06/05/18 11:50 06/05/18 11:50 06/05/18 11:50 06/05/18 11:50 06/05/18 11:50 General appearance: Present: A&O X 3 - Head Head exam: Present: atraumatic, normocephalic - Eye Eye exam: Present: PERRL, conjuntiva pink, sclera anicteric Pupils: Present: PERRL - Neck Neck exam general surgery: Present: supple, trachea midline. Absent: lymphadenopathy - Respiratory Respiratory exam: Present: CTAB. Absent: accessory muscle use, rales, rhonchi, wheezes - Cardiovascular Cardiovascular exam: Present: RRR, +S1, +S2. Absent: diastolic murmur, gallop, rubs, systolic murmur - GI/Abdominal GI/Abdominal exam: Present: normal bowel sounds, soft, no peritoneal signs. Absent: distended, tenderness - Extremities Exam Extremities exam: Present: warm, radial pulses palpable and symmetrical. Absent : calf tenderness, cyanotic, pedal edema - Neurological Exam Neurological exam: Present: CN II-XII intact, oriented X3, no focal deficits. Absent: pronater drift, facial droop, speech deficit - Skin Skin exam: Present: dry, intact Internal Medicine: Result - Labs CBC & Chem 7: 06/05/18 06:01 06/05/18 06:01 Labs: Short CBC 06/05/18 Range/Units 06:01 WBC 6.4 (4.3-11.1) K/mcL Hgb 11.4 L (12.9-16.9) g/dL Hct 34.7 L (37.5-50.1) % Plt Count 353 (140-400) K/mcL Neutrophils # 3.9 (1.6-8.9) K/mcL BMP 06/05/18 06:01 Sodium 135 L Potassium 3.8 Chloride 99 Carbon Dioxide 28 BUN 8 Creatinine 0.50 L Glucose 96 Calcium 9.0 - ABG Interpretation ABG results: PT/INR, D-dimer PT 14.3 Seconds (9.4-12.1) H 06/02/18 19:44 - VTE Documentation of Mechanical Device: Intermittent pneumatic compression device Consult Discharge Plan - Plan Referrals: Danilo Faustin MD [Primary Care Provider] -
--- NOTE | 2018-06-05 21:22 | Pulmonology Progress Note ---
Date of Encounter: 06/05/18 Time of Encounter: 12:00 Assessment and Plan (1) Empyema of lung Current Visit: Yes Status: Acute After the intrapleural TPA yesterday evening the chest tube drianed 60-[address] chest showed almost near resolution of empyema small amount remaining. To Plan another dose of intrapleural t-PA tomorrow given 1 more day with suction . Will do Chest x-ray before pulling out the tube . Since there is one pocket and the medially in the sub pulmonic region which is very small which cannot be drained by IR patient might need at least 3-4 weeks of antibiotics ID will be seeing him Wednesday and decide about antibiotics and duration of therapy. 06/05 and drained almost 30-40 mL over [address] scan showed small amount of empyema but most of the empyema is resolved. We will give 1 more dose of TPA today and will monitor the output the output is less than 30 mL will just take the tube out will sign out to he will evaluate what is appropriate time to remove the chest tube. As well as un drained subpulmonic pocket. Patient for ID to determine the duration of antibiotics orally culture grew Streptococcus intermedius it is sensitive to ceftriaxone he will need at least 3 weeks of antibiotics will wait for ID final recs before discharge. Subjective Principal diagnosis: Empyema Right Lung Interval history: Has some pain in the right side where the chest tube was removed patient had almost 60-70 drainage after I put intrapleural t-PA. Body fluid cultures growing gram-positive organism few days ago the body fluid culture grew Streptococcus intermedius hopefully this the same organism for time being we will keep vancomycin once the species is confirmed and sensitivity we can de- escalate antibiotics. Patient denies any fever or chills does not look toxic except for the chest pain around the chest tube insertion site otherwise he does not have any complaints is doing well. 06/05 and is feeling a lot better has some on and off pain around the incision site, denies any fever or chills denies any other constitutional symptoms. Objective PUL Vital signs: Last Vital Signs Temp 98.3 F 06/05/18 16:09 Pulse 65 06/05/18 16:09 Resp 16 06/05/18 16:09 BP 113/49 06/05/18 16:09 Pulse Ox 95 07/22/18 16:09 Auscultation: right: diminished breath sounds Results - Laboratory Findings CBC and BMP: 06/05/18 06:01 06/05/18 06:01 PT/INR, D-dimer PT 14.3 Seconds (9.4-12.1) H 06/02/18 19:44 Abnormal lab findings: Abnormal lab results RBC 4.10 M/mcL (4.19-5.50) L 06/05/18 06:01 Hgb 11.4 g/dL (12.9-16.9) L 06/05/18 06:01 Hct 34.7 % (37.5-50.1) L 06/05/18 06:01 MCH 27.8 pg (28.0-33.3) L 06/05/18 06:01 MPV 9.2 fL (9.4-12.4) L 06/05/18 06:01 Reactive Lymphocytes Present (Not Present) A 06/05/18 06:01 PT 14.3 Seconds (9.4-12.1) H 06/02/18 19:44 Sodium 135 mEq/L (136-145) L 06/05/18 06:01 Creatinine 0.50 mg/dL (0.70-1.30) L 06/05/18 06:01 Calculated Osmolality 278 (280-300) L 06/05/18 06:01 Lactic Acid 2.4 mmol/L (0.5-2.2) H 06/03/18 14:00 AST 81 Units/L (13-39) H 06/03/18 14:00 ALT 83 Units/L (7-52) H 06/03/18 14:00 Alkaline Phosphatase 115 Units/L (34-104) H 06/03/18 14:00 Albumin 3.1 g/dL (3.5-5.7) L 06/03/18 14:00 Globulin 4.5 g/dL (2.4-3.5) H 06/03/18 14:00 Albumin/Globulin Ratio 0.7 (1.1-2.2) L 06/03/18 14:00 - Clinical Findings Intake & Output: Intake & Output 06/05/18 06/05/18 06/05/18 07:59 15:59 23:59 Intake Total 310 / 310 1320 / 1320 Output Total 760 / 760 1375 / 1375 445 / 445 Balance -450 / -450 -55 / -55 -445 / -445 Weight 61.2 kg - VTE Documentation of Mechanical Device: Intermittent pneumatic compression device Consult Discharge Plan - Plan Referrals: Danilo Faustin MD [Primary Care Provider] -
[2018-06-06] MEDS: Clindamycin 600 MG/50 ML 600 MG/50 ML IV.SOLN IVPB SCH ×2 (01:06→09:17)
[2018-06-06 04:19] LABS: Basophils % 0.5 %; Eosinophils # 0.2 K/mcL (0.0-0.6); Eosinophils % 3.2 %; Hematocrit 34.8 % (37.5-50.1); Hemoglobin 10.9 g/dL (12.9-16.9); Immature Granulocytes % 0.6 % (0-4); Lymphocytes # 1.5 K/mcL (0.6-4.6); Lymphocytes % 24.6 %; Mean Corpuscular HGB Conc 31.3 g/dL (31.6-35.5); Mean Corpuscular Hemoglobin 26.8 pg (28.0-33.3); Mean Corpuscular Volume 85.7 fL (83.0-100.0); Mean Platelet Volume 9.5 fL (9.4-12.4); Monocytes # 0.7 K/mcL (0.0-1.3); Monocytes % 11.6 %; Neutrophils # 3.7 K/mcL (1.6-8.9); Platelet Count 353 K/mcL (140-400); Red Blood Count 4.06 M/mcL (4.19-5.50); Red Cell Distribution Width 13.5 % (11.5-14.5); Segmented Neutrophils % 59.5 %
[2018-06-06 04:31] LABS: BUN/Creatinine Ratio 17 (6-26); Blood Urea Nitrogen 9 mg/dL (6-20); Calcium 9.2 mg/dL (8.6-10.3); Carbon Dioxide 29 mEq/L (23-29); Chloride 99 mEq/L (98-107); Glucose 112 mg/dL (70-105); Osmolality,Calculated 275 (280-300); Potassium 4.2 mEq/L (3.5-5.1); Sodium 133 mEq/L (136-145); eGFR For African Americans > 60 (> 60); eGFR For Non-African Americans > 60 (> 60)
[2018-06-06 04:50] LABS: Platelet Estimate Normal (Normal); Reactive Lymphocytes Present (Not Present)
--- NOTE | 2018-06-06 07:07 | Pulmonology Progress Note ---
Date of Encounter: 06/06/18 Time of Encounter: 07:06 Assessment and Plan (1) Empyema of lung Current Visit: Yes Status: Acute This is secondary to streptococcal infection The patient is status post small bore chest tube with drainage of the affected area is been no further output from chest tube and plan to remove this today Clinically and radiographically I feel that he is stable to transition to treat with antimicrobials for at least [address] scan at that time to demonstrate resolution I recommend formal infectious disease consultation for management of antimicrobials. I suspect the de-escalation to respiratory fluoroquinolone would be appropriate to complete duration of therapy. Given the patient's history of drug abuse I recommended against long-term IV antimicrobial as an outpatient unless in a supervised environment but I will defer to infectious disease for their final recommendations Subjective Principal diagnosis: Empyema Right Lung Interval history: No acute events overnight minimal to no output from chest to after administration of tPA . Patient is complaining of some pain in the chest tube site otherwise he says he feels well denies fevers chills or night sweats Objective PUL Vital signs: Last Vital Signs Temp 98.5 F 06/06/18 06:31 Pulse 70 06/06/18 06:31 Resp 16 06/06/18 06:31 BP 113/71 06/06/18 06:31 Pulse Ox 97 06/06/18 06:31 General appearance: no acute distress ENT: oropharynx moist Auscultation: bilateral: clear Cardiovascular: regular rate and rhythm Gastrointestinal: normoactive bowel sounds Extremities: no cyanosis, no edema Musculoskeletal: no deformities normal mental status, non-focal exam mood appropriate Results - Laboratory Findings CBC and BMP: 06/06/18 03:20 06/06/18 03:20 PT/INR, D-dimer PT 14.3 Seconds (9.4-12.1) H 06/02/18 19:44 Abnormal lab findings: Abnormal lab results RBC 4.06 M/mcL (4.19-5.50) L 06/06/18 03:20 Hgb 10.9 g/dL (12.9-16.9) L 06/06/18 03:20 Hct 34.8 % (37.5-50.1) L 06/06/18 03:20 MCH 26.8 pg (28.0-33.3) L 06/06/18 03:20 MCHC 31.3 g/dL (31.6-35.5) L 06/06/18 03:20 Reactive Lymphocytes Present (Not Present) A 06/06/18 03:20 PT 14.3 Seconds (9.4-12.1) H 06/02/18 19:44 Sodium 133 mEq/L (136-145) L 06/06/18 03:20 Creatinine 0.53 mg/dL (0.70-1.30) L 06/06/18 03:20 Glucose 112 mg/dL (70-105) H 06/06/18 03:20 Calculated Osmolality 275 (280-300) L 06/06/18 03:20 Lactic Acid 2.4 mmol/L (0.5-2.2) H 06/03/18 14:00 AST 81 Units/L (13-39) H 06/03/18 14:00 ALT 83 Units/L (7-52) H 06/03/18 14:00 Alkaline Phosphatase 115 Units/L (34-104) H 06/03/18 14:00 Albumin 3.1 g/dL (3.5-5.7) L 06/03/18 14:00 Globulin 4.5 g/dL (2.4-3.5) H 06/03/18 14:00 Albumin/Globulin Ratio 0.7 (1.1-2.2) L 06/03/18 14:00 - Clinical Findings Intake & Output: Intake & Output 06/05/18 06/05/18 06/06/18 15:59 23:59 07:59 Intake Total 1590 / 1590 1170 / 1170 240 / 240 Output Total 1375 / 1375 445 / 445 1750 / 1750 Balance 215 / 215 725 / 725 -1510 / -1510 Weight 61 kg - VTE Documentation of Mechanical Device: Intermittent pneumatic compression device Consult Discharge Plan - Plan Referrals: Danilo Faustin MD [Primary Care Provider] -
[2018-06-06] MEDS: Beclomethasone 80mcg MDI IH SCH ×2 (07:35→22:23)
[2018-06-06] MEDS: Methadone Oral Concentrate 10 MG/ML PO SCH (09:18)
[2018-06-06] MEDS: Cefepime HCl 2,000 MG in Water for inj. (sterile) 20 ML 20 ML IVP SCH (09:18)
[2018-06-06] MEDS ORDERED: Aminoglycoside Consult 1 EACH MC ONE (13:59)
--- NOTE | 2018-06-06 14:12 | Infectious Disease Consult ---
Date of Encounter: 06/06/18 Time of Encounter: 14:06 Assessment and Plan (1) Fever Status: Acute Assessment and plan: Tmax 101.3 on the day of admission. Likely secondary to empyema. Afebrile x 48 hours. No other SIRS criteria. Blood cultures drawn 06/02/18 are NGTD x 2 sets. Qualifiers: Fever type: unspecified Qualified Code(s): R50.9 - Fever, unspecified (2) Empyema of lung Status: Acute Assessment and plan: Location: Right middle and right lower lobe. Causative organism: S. intermedius. Likely secondary to pneumonia. Failed outpatient oral Levaquin. Status post thoracentesis 04/27/18. Exudative. Culture positive for S. intermedius. Pathology negative for malignancy. CT chest 06/02/18 showed large loculated empyema of the right hemithorax. Status post chest tube placement 06/03/18 by IR. Large amount of purulent drainage noted. Approx 700ml drained since put in. Chest tube removed this morning. Culture positive for S. intermedius again. Discontinue Vanc, Clinda, and Zosyn. Start omnicef 300mg PO BID. Duration of treatment depends on the clinical picture, but likely a total of 4 weeks. Will plan to repeat CT chest in three weeks and follow-up with ID in 4 weeks. We will contact the patient to schedule CT scan and ID follow-up appt. Monitor renal function and dose-adjust antibiotics. (3) Hyponatremia Status: Acute (4) Substance abuse Status: Acute Assessment and plan: Reports history of IVDU with last use 3 months ago. Currently on Methadone. (5) Hepatitis C Status: Acute Assessment and plan: Known Hep C positive, likely due to IVDU. Check Hep B antigen and antibody. If both are negative, consider Hep B immunization series. Check HIV. Qualifiers: Viral hepatitis chronicity: chronic Hepatic coma status: without hepatic coma Qualified Code(s): B18.2 - Chronic viral hepatitis C Infectious Disease HPI - Data of Consult Patient: new to practice Consult date: 06/06/18 Requesting Physician: Armen Acevedo MD Primary Care Provider: Danilo Faustin MD - Consult Narrative Reason for consult: Empyema History of present illness: Mr. Finley is a 42 year old male with a past medical history of asthma and hepatitis C. The patient was managed in the hospital June 02 for empyema. We are consulted June 06 for antibiotic recommendations for empyema. Briefly, the patient is a 42-year-old male with a past medical history as stated above. The patient was evaluated in the emergency department on April 24 for right back pain. He N x-ray that showed a right-sided pleural effusion and possible pneumonia. He was treated with a Z-Brant and followed up with his PCP who set him up for a thoracentesis. He had a thoracentesis on April 27 that showed sabrina pus. Culture was positive for strep intermedius. He was treated with a ten-day course of Levaquin. He saw his PCP again on the and given an additional 7 days of Levaquin. He had a repeat chest x-ray on May 10 that showed persistent dense consolidation in the right lower and right middle lobes. His symptoms resolved, but his PCP ordered a CT chest that showed a large loculated empyema of the right hemithorax and subsequently referred him to the emergency department. Upon arrival, the patient was febrile, but was otherwise hemodynamically stable. Laboratory studies revealed a normal white blood cell count. LFTs were mildly elevated. He was started on Vanco and cefepime and admitted to the hospital for further evaluation. After admission, the patient was evaluated by pulmonology who recommended IR consult for chest tube placement. On June 03, the patient had a chest tube placed to the left posterior thorax. He did receive some intrapleural TPA to facilitate drainage. He had a repeat CT chest on June 04 that showed a small residual empyema and pleural effusion. His white blood cell count remained normal. His antibiotics were escalated to Vanco, Clinda, and cefepime. Chest tube was removed this morning by the pulm team. We have asked to evaluate and make further recommendations. During my exam today, the patient endorses the history as stated above. He states that overall he was feeling well just very fatigued prior to admission. He denied any known fevers or chills. He does report chronic night sweats. He denied any headache or dizziness. Denies any congestion, earache, or sore throat. Denied chest pain or shortness of breath and states the pain was previously in his back had resolved. He denied any nausea or vomiting. He reported poor appetite because he was afraid he had lung cancer, but states when he found out that he did not his appetite came back. He denies any diarrhea or abdominal pain. Denies urinary complaints. Denies any oral thrush or new skin lesions. The patient lives at home alone. He does not currently work outside the home. He is a recovering IV drug user and has not used in the past 3 months. He states he visits the methadone clinic daily. He reports social alcohol use. States he smokes about a pack a day, but states he is trying to quit prior to admission. He denies recent travel outside the [facility]. He denies any pet or animal exposure. CC: Armen Acevedo MD Past Med Surg Social Fam HX - Past Medical History Attestation: Yes The following information was validated with the patient. Source: patient, old records reviewed, nursing notes reviewed Medical history: asthma, hepatitis (Hepatitis C.) Additional medical history: Hx of MRSA on R thumb Psychiatric history: no psych history - Past Surgical History Surgical History: other (Right thumb I & D) Additional surgical history: MRSA I&D - Social History Smoking Status: Light tobacco smoker Packs per day: 1 Smokeless Tobacco Status: No Alcohol use: rarely Drug use: opiates, IV Drug Use Occupational status: unemployed Current living situation: Home - Independent Activity Level: Independent ambulation Recent Out of Country Travel Within the Last 8 Weeks: No Exposure or Possible Exposure to Illness During Travel: No Infectious Disease-CN:Meds Albuterol Sulfate [Ventolin Hfa] 2 puff IH Q4-6H PRN 06/02/18 [History] Beclomethasone Diprop 80mcg [Qvar 80 mcg] 1 puff IH BID 06/02/18 [History] Methadone Oral Concentrate [Methadone] 105 mg PO QAM 06/02/18 [History] 3 Allergy/AdvReac Type Severity Reaction Status Date / Time Penicillins AdvReac Rash Verified 06/02/18 19:19 All systems: reviewed and no additional remarkable complaints except as stated Exam - Constitutional Vitals: Temp Pulse Resp BP Pulse Ox 97.8 F 61 16 110/66 97 06/06/18 11:35 06/06/18 11:35 06/06/18 11:35 06/06/18 11:35 06/06/18 11:35 General appearance: cooperative, no acute distress, thin - Head Head exam: Present: atraumatic, normal inspection, normocephalic - Eye Eye exam: Present: EOMI, normal appearance, PERRL Pupils: Present: normal accommodation - ENT ENT exam: Present: mucous membranes moist - Neck Neck exam: Present: normal inspection - Respiratory Respiratory exam: Present: decreased breath sounds (Right posterior base), CTAB. Absent: rales, respiratory distress, rhonchi, wheezes - Cardiovascular Cardiovascular exam: Present: RRR, +S1, +S2 - GI/Abdominal GI/Abdominal exam: Present: normal bowel sounds, soft. Absent: distended, tenderness - Extremities Exam Extremities exam: Present: normal inspection. Absent: joint swelling, pedal edema, tenderness - Back Exam Back exam: Present: tenderness (Right chest tube site.) Additional comments: Dressing noted to the right posterior back C/D/I. - Neurological Exam Neurological exam: Present: alert, oriented X3, no focal deficits - Psychiatric Psychiatric exam: Present: normal affect, normal mood - Skin Skin exam: Present: dry, intact, normal color, warm Infectious Disease CN: Results - Labs CBC & Chem 7: 06/06/18 03:20 06/06/18 03:20 Cultures: Cultures 06/03/18 11:00 Body Fluid Culture - Preliminary Pleural Fluid Streptococcus intermedius 06/02/18 19:44 Blood Culture - Preliminary Peripheral Venipuncture Culture is incubating and being continuously monitored for growth. Final report to follow. 06/02/18 19:44 Blood Culture - Preliminary Peripheral Venipuncture Culture is incubating and being continuously monitored for growth. Final report to follow. Serology: Serology 06/03/18 06/03/18 Range/Units 11:00 11:00 Pleural pH 8.00 (No Ref Range) pH Units Pleural Total Protein TNP Pleural Albumin TNP Pleural LDH TNP Pleural Amylase TNP - VTE Documentation of Mechanical Device: Intermittent pneumatic compression device Consult Discharge Plan - Plan Referrals: Danilo Faustin MD [Primary Care Provider] - - Attending Attestation I examined this patient and my medical decision-making was reviewed with the Resident Physician. I agree with the documented findings, disposition and treatment plan as described except to the extent set forth below. This is an addendum to original report dictated by Debra Murray ENT. Please refer to Debra's note for full detail. Patient is a 42-year-old gentleman with history of hepatitis see an IV drug use apparently had pleural effusion on April 24 and was given a Z-Brant. Patient was having more flank and chest pain. Underwent a thoracentesis and looks like had exudate with WBCs over 100,000 and cultures grew strep intermedius. Patient was started on levofloxacin. Patient was clinically doing better and came back to the hospital where he had a repeat CT scan which showed a large loculated empyema. Patient had chest tube placed and was started on broad-spectrum antibiotics with vancomycin and cefepime and clindamycin. Patient was doing better clinically and this morning the chest tube was removed. We were asked to evaluate the patient's make recommendations. Assessment and plan: Fever Empyema of the lung IV drug use Hepatitis C Assessment and plan: Patient had chest tube placed since the through the . Drainage was minimal. I did personally review both CAT scans from before with chest tube placement and after which revealed significant resolution of the pulmonary emphysema with residual changes. I think at this point with the history of IV drug use SOB heart to send the patient on IV antibiotics without placement. Clinically he looks good and the erythema is virtually most all gone. I will probably put him on oral antibiotics and repeat CT scan in 2 weeks and see how the patient is clinically doing better. Recommend Omnicef 300 mg by mouth twice a day. Also because of the IV drug use and hepatitis C recommend checking HIV and hepatitis B.
[2018-06-06] MEDS: 0.9 % Sodium Chloride 1,000 ML IVC SCH (15:17)
[2018-06-06 17:59] LABS: HIV-1&2 Antibody & p24 Ag Nonreactive (Nonreactive); Hepatitis B Surface Antibody 0.93 mIU/mL; Hepatitis B Surface Antigen Nonreactive (Nonreactive)
--- NOTE | 2018-06-06 18:52 | Internal Med Progress Note ---
Date of Encounter: 06/06/18 Time of Encounter: 11:00 - Assessment and plan (1) Empyema of lung Current Visit: Yes Status: Acute Assessment and plan: 06/02 Start on broad spectrum antibiotics with vanc and cefepime. Monitor for rash in the setting of penicillin allergy. Levaquin is a consideration , but also contraindicated as patient is on methadone and may cause QT prolongation. F /U blood cultures. Pulmonary consulted and plan for chest tube in am 06/03 patient was seen by pulmonology chest tube was placed today by IR does have thick green drainage her to intermittent suction. Continue with cefepime and vancomycin clindamycin has been added per pulmonology- We will consult ID We will give [employer] for pain as well as lidocaine patch and muscle relaxer Flexeril. 06/[address] today shows small residual right empyema/pleural effusion is identified right thoracostomy catheter is in satisfactory position. Continue with pain management patient started on methadone continue lidocaine patch and muscle relaxer as needed ID has been consulted chest tube fluid shows gram-positive cocci currently on cefepime Vancomycin and clindamycin-blood cultures are pending 06/05 - Drainage much improved - chest tube fluid shows gram positive cocci Cont with Vanc,cefepime and clindamycin- There is one pocket medially in the sub pulmonic region which is very small and cannot be drained by IR - patient may need at least 3-4 weeks of antibiotics per ID - will see on Wednesday and decide ATB and duration - Discussed case with pulmonology 06/06 steroid made by pulmonology-infectious disease consulted discontinuing vancomycin clindamycin and Zosyn placing on Omnicef 300 mg by mouth twice a day for possibly a total of [address] chest in 3 weeks and follow-up with ID 4 weeks (2) Sepsis Current Visit: Yes Status: Acute Assessment and plan: Secondary to empyema. Continue with vancomycin clindamycin and cefepime. Infectious disease has been consulted and awaiting blood cultures Chest tube in place 06/04 secondary to empyema we will continue with vancomycin clindamycin and cefepime infectious disease has been consulted -preliminary pleural fluid culture is positive for gram-positive cocci 06/05 secondary to empyema we will continue with vancomycin clindamycin and cefepime infectious disease consulted preliminary pleural fluid culture is positive for gram-positive cocci 06/06-secondary to empyema chest tube placed and removed per pulmonology infectious disease consulted was given vancomycin clindamycin and Zosyn which was DC'd and placed on Omnicef Qualifiers: Sepsis type: sepsis due to unspecified organism Qualified Code(s): A41.9 - Sepsis, unspecified organism (3) Substance abuse Current Visit: Yes Status: Acute Assessment and plan: On methadone-however patient cannot clarify dosage. We will obtain clarification in the a.m. 06/04 continue with methadone 06/05 we will continue with methadone. Patient appears to be stable at this time 06/06 continue with methadone does not appear to be withdrawing at this time (4) Hyponatremia Current Visit: Yes Status: Acute Assessment and plan: 1 sodium improving 133 today we will continue to monitor (5) DVT prophylaxis Current Visit: Yes Status: Acute Assessment and plan: scds - Time Spent With Patient Total time spent is greater than 50% in coordination of care (as documented) at patient's floor/unit and/or counseling patient: - Subjective Interval history: Patient seen and examined at bedside earlier this a.m. Patient has chest tube at this time of assessment placed at right chest wall no crepitus noted. Patient feels his pain is controlled at this time. Chest tube is patent and draining no air leaks or crepitus noted - Constitutional Vitals: Temp Pulse Resp BP Pulse Ox 98.3 F 52 16 109/66 97 06/06/18 15:40 06/06/18 15:40 06/06/18 15:40 06/06/18 15:40 06/06/18 15:40 General appearance: Present: A&O X 3 - Head Head exam: Present: atraumatic, normocephalic - Eye Eye exam: Present: PERRL, conjuntiva pink, sclera anicteric Pupils: Present: PERRL - Neck Neck exam general surgery: Present: supple, trachea midline. Absent: lymphadenopathy - Respiratory Respiratory exam: Present: CTAB. Absent: accessory muscle use, rales, rhonchi, wheezes - Cardiovascular Cardiovascular exam: Present: RRR, +S1, +S2. Absent: diastolic murmur, gallop, rubs, systolic murmur - GI/Abdominal GI/Abdominal exam: Present: normal bowel sounds, soft, no peritoneal signs. Absent: distended, tenderness - Extremities Exam Extremities exam: Present: warm, radial pulses palpable and symmetrical. Absent : calf tenderness, cyanotic, pedal edema - Neurological Exam Neurological exam: Present: CN II-XII intact, oriented X3, no focal deficits. Absent: pronater drift, facial droop, speech deficit - Skin Skin exam: Present: dry, intact Internal Medicine: Result - Labs CBC & Chem 7: 06/06/18 03:20 06/06/18 03:20 Labs: Short CBC 06/06/18 Range/Units 03:20 WBC 6.2 (4.3-11.1) K/mcL Hgb 10.9 L (12.9-16.9) g/dL Hct 34.8 L (37.5-50.1) % Plt Count 353 (140-400) K/mcL Neutrophils # 3.7 (1.6-8.9) K/mcL BMP 06/06/18 03:20 Sodium 133 L Potassium 4.2 Chloride 99 Carbon Dioxide 29 BUN 9 Creatinine 0.53 L Glucose 112 H Calcium 9.2 - ABG Interpretation ABG results: PT/INR, D-dimer PT 14.3 Seconds (9.4-12.1) H 06/02/18 19:44 - VTE Documentation of Mechanical Device: Intermittent pneumatic compression device Consult Discharge Plan - Plan Referrals: Danilo Faustin MD [Primary Care Provider] -
[2018-06-06] MEDS: Cefdinir 300 MG CAPSULE PO SCH (20:09)
[2018-06-07] MEDS: 0.9 % Sodium Chloride 1,000 ML IVC SCH (02:08)
[2018-06-07 05:54] LABS: Basophils % 0.3 %; Eosinophils # 0.2 K/mcL (0.0-0.6); Eosinophils % 3.2 %; Hematocrit 33.6 % (37.5-50.1); Hemoglobin 10.9 g/dL (12.9-16.9); Immature Granulocytes % 0.5 % (0-4); Lymphocytes # 1.4 K/mcL (0.6-4.6); Lymphocytes % 23.3 %; Mean Corpuscular HGB Conc 32.4 g/dL (31.6-35.5); Mean Corpuscular Hemoglobin 27.3 pg (28.0-33.3); Mean Platelet Volume 9.3 fL (9.4-12.4); Monocytes # 0.6 K/mcL (0.0-1.3); Monocytes % 9.5 %; Neutrophils # 3.8 K/mcL (1.6-8.9); Platelet Count 352 K/mcL (140-400); Red Cell Distribution Width 13.5 % (11.5-14.5); Segmented Neutrophils % 63.2 %
[2018-06-07 06:07] LABS: BUN/Creatinine Ratio 21 (6-26); Blood Urea Nitrogen 10 mg/dL (6-20); Calcium 9.3 mg/dL (8.6-10.3); Carbon Dioxide 28 mEq/L (23-29); Chloride 100 mEq/L (98-107); Glucose 98 mg/dL (70-105); Osmolality,Calculated 279 (280-300); Potassium 3.9 mEq/L (3.5-5.1); Sodium 135 mEq/L (136-145); eGFR For African Americans > 60 (> 60); eGFR For Non-African Americans > 60 (> 60)
[2018-06-07] MEDS: Beclomethasone 80mcg MDI IH SCH (07:45)
[2018-06-07] MEDS ORDERED: Methadone Oral Concentrate 50 MG/5 ML UDC PO SCH (09:00)
--- NOTE | 2018-06-07 09:02 | Discharge Summary ---
<Nancy Mays - Last Filed: 06/07/18 08:52> - NOTES TO OUTPATIENT PROVIDER Notes to Outpatient Provider: Mr. Finley presented to the ED after an xray and outpatient CT showed empyema. Pulmonology, Infectious disease and IR were consulted. Chest tube placed and drained 465 ml fluid. Fluid showed streptococcus intermedius and he was on IV antibiotics, now transitioned to oral. Will remain of omnicef for 4 weeks and flagyl for 1 week. Need to follow up with Infectious disease physician in 2 weeks. Date of Encounter: 06/07/18 Time of Encounter: 09:00 - Discharge Diagnosis (1) Empyema of lung Priority: Primary Status: Resolved (2) Sepsis Priority: Secondary Status: Resolved Qualifiers: Sepsis type: sepsis due to unspecified organism Qualified Code(s): A41.9 - Sepsis, unspecified organism (3) Substance abuse Priority: Secondary Status: Chronic (4) DVT prophylaxis Priority: Secondary Status: Acute (5) Hyponatremia Priority: Secondary Status: Acute Hospital course: Mr. Finley is a 42 year old man who presented to the ED after an xray and outpatient CT showed empyema. He has history of IV drug use and last use was 3 months ago. Pulmonology, Infectious disease and IR were consulted. He was started on cefepime and vancomycin. Chest tube was placed and drained 465 ml of fluid which showed Streptococcus intermedius, he was started on vacomycin and cefepime. Chest tube removed 06/06/[address] showed resolution of the fluid. Yesterday he transitioned to oral antibiotics. He will remain on omnicep for 4 weeks and flagyl for 1 week. He is to follow with infectious disease physician in 2 weeks. Discharge discussed with: patient - Time Spent with Patient Total time spent providing and/or coordinating discharge services: - Discharge Medications Prescriptions: Cefdinir [Omnicef] 300 mg PO BID 28 Days #60 capsule metroNIDAZOLE [Flagyl] 500 mg PO TID 7 Days #21 tablet Home Medications: Albuterol Sulfate [Ventolin Hfa] 2 puff IH Q4-6H PRN 06/02/18 [History] Beclomethasone Diprop 80mcg [QVAR 80 mcg] 1 puff IH BID 06/02/18 [History] Methadone Oral Concentrate [Methadone] 105 mg PO QAM 06/02/18 [History] Cefdinir [Omnicef] 300 mg PO BID 28 Days #60 capsule 06/07/18 [Rx] metroNIDAZOLE [Flagyl] 500 mg PO TID 7 Days #21 tablet 06/07/18 [Rx] Allergies/Adverse Reactions: 3 Allergy/AdvReac Type Severity Reaction Status Date / Time Penicillins AdvReac Rash Verified 06/02/18 19:19 Date of admission: 06/03/18 12:30 Primary care physician: Danilo Faustin MD Consults: 06/03/18 15:13 Consult to Infectious Diseases [CONS] Routine Consulting Provider: Infectious Disease [place] Reason for Consult: Empyema Time Notified: 15:13 Call Completed: Yes 06/06/18 09:52 Consult to [employer] Tender [CONS] Routine Reason for SW Consult: Will need placement for IV abx; recent h/o IVDU; ID to see today Discharging clinician: Nancy Mays Anticipated date of discharge: 06/07/18 - Constitutional Vitals: Temp Pulse Resp BP Pulse Ox 98.3 F 69 16 109/65 96 06/07/18 07:34 06/07/18 07:34 06/07/18 07:45 06/07/18 07:34 06/07/18 07:45 General appearance: Present: A&O X 3, no acute distress - Head Head exam: Present: atraumatic, normocephalic - Eye Eye exam: Present: EOMI. Absent: conjunctival injection - ENT ENT exam: Present: mucous membranes moist - Neck Neck exam general surgery: Present: full ROM, trachea midline - Respiratory Respiratory exam: Present: CTAB. Absent: rales, stridor, wheezes - Cardiovascular Cardiovascular exam: Present: RRR. Absent: clicks, gallop, JVD - GI/Abdominal GI/Abdominal exam: Present: soft. Absent: firm, rigid - Extremities Exam Extremities exam: Present: full ROM, warm. Absent: pedal edema, tenderness - Psychiatric Psychiatric exam: Present: flat affect, normal mood - Skin Skin exam: Present: dry, warm. Absent: erythema (has many IV drug use markings on the arms) - Patient Status Disposition: Home, Self-Care Condition: Good Functional capacity at discharge: independent ambulation Overall status at discharge: patient is progressing back to baseline - Discharge Instructions Instructions: Metronidazole (By mouth), Cefdinir (By mouth) Follow Up With: Danilo Faustin MD [Primary Care Provider] - 06/15/18 10:15 am - Diet and Activity Activity: increase activity as tolerated Diet: advance to your usual diet - VTE Documentation of Mechanical Device: Intermittent pneumatic compression device <Isiah Woodruff - Last Filed: 06/07/18 17:15> Date of Encounter: 06/07/18 - Discharge Diagnosis (1) Empyema of lung Status: Resolved (2) Sepsis Status: Resolved Qualifiers: Sepsis type: sepsis due to unspecified organism Qualified Code(s): A41.9 - Sepsis, unspecified organism (3) Substance abuse Status: Chronic (4) DVT prophylaxis Status: Acute (5) Hyponatremia Status: Acute Hospital course: Mr. Finley is a 42 year old male - Time Spent with Patient Total time spent providing and/or coordinating discharge services: Date of admission: 06/03/18 12:30 Primary care physician: Danilo Faustin MD Consults: 06/03/18 15:13 Consult to Infectious Diseases [CONS] Routine Consulting Provider: Infectious Disease [place] Reason for Consult: Empyema Time Notified: 15:13 Call Completed: Yes 06/06/18 09:52 Consult to [employer] Tender [CONS] Routine Reason for SW Consult: Will need placement for IV abx; recent h/o IVDU; ID to see today - Constitutional Vitals: Temp Pulse Resp BP Pulse Ox 98.3 F 69 16 104/74 96 06/07/18 11:32 06/07/18 07:34 06/07/18 11:32 06/07/18 11:32 06/07/18 07:45 - Attending Attestation Patient was seen and examined. I agree with the discharge summary as dictated above by the resident physician. Discharge plans and recommendations were made under my direct supervision. Addendum entered and electronically signed by Nancy Mays 06/07/18 10:44: Needs a Pulmonology follow up appointment in 3 weeks. Thanks.
[2018-06-07] MEDS: Cefdinir 300 MG CAPSULE PO SCH (10:18)
--- NOTE | 2018-06-07 10:49 | Infectious Disease Progress No ---
Date of Encounter: 06/07/18 Time of Encounter: 10:47 - Assessment and Plan (1) Fever Status: Resolved Tmax 101.3 on the day of admission. Likely secondary to empyema. Afebrile x 72 hours. No other SIRS criteria. Blood cultures drawn 06/02/18 are NGTD x 2 sets. Qualifiers: Fever type: unspecified Qualified Code(s): R50.9 - Fever, unspecified (2) Empyema of lung Status: Resolved Location: Right middle and right lower lobe. Causative organism: S. intermedius. Likely secondary to pneumonia. Failed outpatient oral Levaquin. Status post thoracentesis 04/27/18. Exudative. Culture positive for S. intermedius. Pathology negative for malignancy. CT chest 06/02/18 showed large loculated empyema of the right hemithorax. Status post chest tube placement 06/03/18 by IR. Large amount of purulent drainage noted. Approx 700ml drained since put in. Chest tube removed this morning. Culture positive for S. intermedius again. Continue omnicef 300mg PO BID. Duration of treatment depends on the clinical picture, but likely a total of 4 weeks. Will plan to repeat CT chest in three weeks and follow-up with ID in 4 weeks. We will contact the patient to schedule CT scan and ID follow-up appt. Monitor renal function and dose-adjust antibiotics. (3) Hyponatremia Status: Acute (4) Substance abuse Status: Chronic Reports history of IVDU with last use 3 months ago. Currently on Methadone. (5) Hepatitis C Status: Acute Known Hep C positive, likely due to IVDU. Check Hep B antigen negative. Hep B antibody shows that the patient is not immune. Recommend the patient see his PCP to get Hep B series. Check HIV --> nonreactive. Qualifiers: Viral hepatitis chronicity: chronic Hepatic coma status: without hepatic coma Qualified Code(s): B18.2 - Chronic viral hepatitis C - Subjective Interval history: Patient seen and examined. No acute events noted overnight. Patient states that overall he feels well. Denies fevers, chills, or rigors. Denies chest pain, shortness of breath, or cough. Denies nausea, vomiting, or diarrhea. Denies abdominal pain, urinary complaints, or appetite changes. Denies oral thrush or skin lesions. Infect Dis PN-Objective Data - Labs CBC & Chem 7: 06/07/18 05:19 06/07/18 05:19 Labs: Laboratory Results - last 24 hr 06/06/18 06/06/18 06/07/18 10:26 16:08 05:19 WBC 6.0 RBC 4.00 L Hgb 10.9 L Hct 33.6 L MCV 84.0 MCH 27.3 L MCHC 32.4 RDW 13.5 Plt Count 352 MPV 9.3 L Immature Gran % 0.5 Seg Neutrophils % 63.2 Lymphocytes % 23.3 Monocytes % 9.5 Eosinophils % 3.2 Basophils % 0.3 Neutrophils # 3.8 Lymphocytes # 1.4 Monocytes # 0.6 Eosinophils # 0.2 Basophils # 0.0 Sodium Potassium Chloride Carbon Dioxide BUN Creatinine Est GFR ( Amer) Est GFR (Non-Af Amer) BUN/Creatinine Ratio Glucose Calculated Osmolality Calcium Vancomycin Trough 7 Hep Bs Antigen Nonreactive Hep Bs Antibody 0.93 HIV Ag/Ab Combo Qual Nonreactive 06/07/18 05:19 WBC RBC Hgb Hct MCV MCH MCHC RDW Plt Count MPV Immature Gran % Seg Neutrophils % Lymphocytes % Monocytes % Eosinophils % Basophils % Neutrophils # Lymphocytes # Monocytes # Eosinophils # Basophils # Sodium 135 L Potassium 3.9 Chloride 100 Carbon Dioxide 28 BUN 10 Creatinine 0.48 L Est GFR ( Amer) > 60 Est GFR (Non-Af Amer) > 60 BUN/Creatinine Ratio 21 Glucose 98 Calculated Osmolality 279 L Calcium 9.3 Vancomycin Trough Hep Bs Antigen Hep Bs Antibody HIV Ag/Ab Combo Qual Cultures: Serology 06/06/18 Range/Units 16:08 Hep Bs Antigen Nonreactive (Nonreactive) Hep Bs Antibody 0.93 mIU/mL HIV Ag/Ab Combo Qual Nonreactive (Nonreactive) Exam - Constitutional Vitals: Temp Pulse Resp BP Pulse Ox 98.3 F 69 16 109/65 96 06/07/18 07:34 06/07/18 07:34 06/07/18 07:45 06/07/18 07:34 06/07/18 07:45 General appearance: cooperative, no acute distress, thin - Head Head exam: Present: atraumatic, normal inspection, normocephalic - Eye Eye exam: Present: EOMI, normal appearance, PERRL Pupils: Present: normal accommodation - ENT ENT exam: Present: mucous membranes moist - Neck Neck exam: Present: normal inspection - Respiratory Respiratory exam: Present: CTAB. Absent: rales, respiratory distress, rhonchi, wheezes Additional comments: Dressing noted to the right posterior thorax C/D/I. - Cardiovascular Cardiovascular exam: Present: RRR, +S1, +S2 - GI/Abdominal GI/Abdominal exam: Present: normal bowel sounds, soft. Absent: distended, tenderness - Extremities Exam Extremities exam: Present: normal inspection. Absent: joint swelling, pedal edema, tenderness - Back Exam Additional comments: Dressing noted to the right posterior back C/D/I. - Neurological Exam Neurological exam: Present: alert, oriented X3, no focal deficits - Psychiatric Psychiatric exam: Present: normal affect, normal mood - Skin Skin exam: Present: dry, intact, normal color, warm - VTE Documentation of Mechanical Device: Intermittent pneumatic compression device Consult Discharge Plan - Plan Instructions: Metronidazole (By mouth), Cefdinir (By mouth) Referrals: Danilo Faustin MD [Primary Care Provider] - 06/15/18 10:15 am Prescriptions: Cefdinir [Omnicef] 300 mg PO BID 28 Days #60 capsule metroNIDAZOLE [Flagyl] 500 mg PO TID 7 Days #21 tablet - Attending Attestation I examined this patient and my medical decision-making was reviewed with the Resident Physician. I agree with the documented findings, disposition and treatment plan as described except to the extent set forth below.
[2018-06-07 11:35] VITALS: BP 104/74
== END 2018-06-07 14:00 | disposition home or self-care (01) | DRG 720 ==
LOC: 3BNU 19:02 → EMEROO 19:02 → 3BNU 06-03 09:01 → 2NENU 06-04 18:43
PROVIDERS: ADMIT Internal Medicine; ATTEND Internal Medicine

== ENCOUNTER 2019-07-13 08:37 | Observation (INO) ==
[2019-07-13] MEDS ORDERED: Isovue-370 500 ML BOTTLE IVP ONE (09:03)
--- NOTE | 2019-07-13 09:07 | Emergency Department Note ---
Disposition Clinical Impression: Tenosynovitis, IV drug user Cellulitis Qualifiers: Site of cellulitis: extremity Site of cellulitis of extremity: upper extremity Laterality: left Qualified Code(s): L03.114 - Cellulitis of left upper limb Disposition: Admitted As Inpatient Condition: Fair Time of Disposition: 12:15 Skin/Abscess/FB HPI Chief complaint: ED Skin/Abscess/Foreign Body Stated complaint: "left hand abscess" Time Seen by Provider: 07/13/19 08:42 Source: patient Limitations: no limitations Nursing Notes Reviewed: Yes Vital Signs Reviewed: Yes HPI Narrative: Alert and oriented nontoxic appearing 43-year-old male presents with complaint of pain and swelling to left hand. Patient reports that he is unsure if this is from an injury at work or from heroin use. 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 He also states that he shot heroin 3 days ago and noticed a swollen left hand about 2 days ago that has gradually worsened since onset. When asked if he injected heroin at the site of the swelling he states that he is unsure but he knows it was in his left arm somewhat. Patient denies fevers, nausea, vomiting. Pt Subjective Complaint: other Onset (ago): day(s) (2 days) Tetanus Up to Date: unsure Location: L hand Severity: mild Quality: burning, aching Consistency: constant, Worsening Treatments prior to arrival: none Home Medications Medication Instructions Recorded Confirmed Albuterol Sulfate [Ventolin Hfa] 2 puff IH Q4H PRN 06/02/18 07/13/19 Beclomethasone Diprop 80mcg [QVAR 1 puff IH BID 06/02/18 07/13/19 80 mcg] Montelukast [Singulair] 10 mg PO DAILY 07/13/19 07/13/19 Nicotine Patch [Nicoderm] 21 mg TD DAILY 07/13/19 07/13/19 Tiotropium [Spiriva] 18 mcg IH 0700 07/13/19 07/13/19 Allergies Allergy/AdvReac Type Severity Reaction Status Date / Time Penicillins Allergy See Verified 02/11/19 09:10 Comments Review of Systems: As Per HPI Constitutional: Reports: as per HPI. Denies: fever, chills, weakness Cardiovascular: Denies: chest pain, palpitations, dyspnea on exertion, syncope Respiratory: Denies: cough, dyspnea, wheezes Gastrointestinal: Denies: abdominal pain, nausea, vomiting, diarrhea Musculoskeletal: Denies: back pain, neck pain Integumentary: Denies: rash, abrasion, lesions, change in hair/nails, pruritus Neurological: Denies: headache, weakness, numbness, paresthesias Past Medical History - Past Medical History Attestation: Yes The following information was validated with the patient. Source: patient, nursing notes reviewed Medical history: Reports: asthma Surgical history: Reports: other Psychiatric history: Reports: no psych history - Social History Smoking Status: Current every day smoker Smokeless Tobacco Status: No Alcohol use: Reports: none Drug use: Reports: opiates, IV Drug Use Physical Exam - General Limitations: no limitations General appearance: alert, in no apparent distress - Head Head exam: atraumatic, normocephalic - Eye Eye exam: Present: normal appearance, EOMI. Absent: scleral icterus, conjunctival injection, periorbital swelling - ENT ENT exam: normal exam, mucous membranes moist - Neck Neck exam: Present: normal inspection, trachea midline. Absent: tenderness, meningismus - Chest Chest inspection: Present: normal inspection, symmetric chest wall rise - Respiratory Respiratory exam: Absent: respiratory distress - Cardiovascular Cardiovascular exam: Present: regular rate - Abdominal Exam Abdominal exam: Present: Non-Tender - Expanded Upper Extremity Exam Hand exam: Present: swelling. Absent: laceration, skin avulsion, ecchymosis, deformity, crepitus, dislocation, erythema, amputation, nail avulsion, subungual hematoma Hand L/R back image: 1 - Edema noted with palpable fluctuation. No induration or cellulitis noted. Vascular exam: Normal: capillary refill (Brisk), radial pulse - Back Exam Back exam: Absent: tenderness - Neurological Exam Neurological exam: Present: alert, oriented X3 - Psychiatric Psychiatric exam: Present: normal affect, normal mood - Skin Skin exam: Present: warm, dry, intact, normal color Course Course Narrative: 0930: Spoke to Dr. Head about this patient, he has assessed the patient and agrees with plan of care. 1201: Spoke to Dr. Olivas, orthopedist, who states that patient should be brought in through the hospitalist as he will need surgical intervention based on CT findings. Vital Signs Temperature 97.7 F 07/13/19 08:38 Pulse Rate 56 07/13/19 08:38 Respiratory Rate 18 07/13/19 08:38 Blood Pressure 124/73 07/13/19 08:38 O2 Sat by Pulse Oximetry 93 07/13/19 08:38 Temperature 97.7 F 07/13/19 08:38 Pulse Rate 56 07/13/19 08:38 Respiratory Rate 18 07/13/19 08:38 Blood Pressure 124/73 07/13/19 08:38 O2 Sat by Pulse Oximetry 93 07/13/19 08:38 Oxygen Delivery Oxygen Delivery Room Air Skin/Abscess/Foreign Body - Lab Data Lab results reviewed: Yes I reviewed the patient's lab results. Result diagrams: 07/13/19 09:15 07/13/19 09:15 Lab Results 07/13/19 07/13/19 07/13/19 Range/Units 09:15 09:15 09:15 WBC 5.3 (4.3-11.1) K/mcL RBC 4.54 (4.19-5.50) M/mcL Hgb 14.2 (12.9-16.9) g/dL Hct 41.5 (37.5-50.1) % MCV 91.4 (83.0-100.0) fL MCH 31.3 (28.0-33.3) pg MCHC 34.2 (31.6-35.5) g/dL RDW 13.2 (11.5-14.5) % Plt Count 204 (140-400) K/mcL MPV 10.7 (9.4-12.4) fL Immature Gran % 0.4 (0-4) % Seg Neutrophils % 47.1 % Lymphocytes % 35.6 % Monocytes % 10.7 % Eosinophils % 5.8 % Basophils % 0.4 % Neutrophils # 2.5 (1.6-8.9) K/mcL Lymphocytes # 1.9 (0.6-4.6) K/mcL Monocytes # 0.6 (0.0-1.3) K/mcL Eosinophils # 0.3 (0.0-0.6) K/mcL Basophils # 0.0 (0.0-0.2) K/mcL ESR 30 H (0-10) mm/hr Sodium 138 (136-145) mEq/L Potassium 3.9 (3.5-5.1) mEq/L Chloride 102 (98-107) mEq/L Carbon Dioxide 29 (23-29) mEq/L BUN 17 (6-20) mg/dL Creatinine 0.68 L (0.70-1.30) mg/dL Est GFR ( Amer) > 60 (> 60) Est GFR (Non-Af Amer) > 60 (> 60) BUN/Creatinine Ratio 25 (6-26) Glucose 88 (70-105) mg/dL Calculated Osmolality 287 (280-300) Calcium 9.5 (8.6-10.3) mg/dL C-Reactive Protein 20 H (Less than 10) mg/L - Radiology Data Radiology results reviewed: Yes I reviewed the patient's radiology results. Attestation Statement - Attestation Attestation: I, Devante Head, examined this patient and my medical decision-making was reviewed with the TIME CYCLE OPERATOR/PA/Advanced Practice Nurse/Resident Physician. I agree with the documented findings, disposition and treatment plan as described except to the extent set forth below. 43-year-old male presents emergency Department with concerns of left hand pain. Patient states he thinks he may have injected heroin into his hand last week. It started worsening after that time. Patient has difficulty with range of motion of the wrist secondary to pain. No significant erythema noted on the exam. Patient is afebrile in the emergency department. Do not take Tylenol or ibuprofen prior to arrival. CTA was obtained of the left hand which shows likely extensor tenosynovitis. Patient was started on antibiotics will be admitted to the hospitalist for further further care and evaluation. Orthopedic physician was counseled regarding the case and will likely take the patient to the OR later today.
[2019-07-13] MEDS ORDERED: Tdap (Boostrix) Vaccine 0.5 ML SYRINGE IM ONE (09:11)
[2019-07-13 09:32] LABS: Basophils % 0.4 %; Eosinophils # 0.3 K/mcL (0.0-0.6); Eosinophils % 5.8 %; Hematocrit 41.5 % (37.5-50.1); Hemoglobin 14.2 g/dL (12.9-16.9); Immature Granulocytes % 0.4 % (0-4); Lymphocytes # 1.9 K/mcL (0.6-4.6); Lymphocytes % 35.6 %; Mean Corpuscular HGB Conc 34.2 g/dL (31.6-35.5); Mean Corpuscular Hemoglobin 31.3 pg (28.0-33.3); Mean Corpuscular Volume 91.4 fL (83.0-100.0); Mean Platelet Volume 10.7 fL (9.4-12.4); Monocytes # 0.6 K/mcL (0.0-1.3); Monocytes % 10.7 %; Neutrophils # 2.5 K/mcL (1.6-8.9); Platelet Count 204 K/mcL (140-400); Red Blood Count 4.54 M/mcL (4.19-5.50); Red Cell Distribution Width 13.2 % (11.5-14.5); Segmented Neutrophils % 47.1 %; White Blood Count 5.3 K/mcL (4.3-11.1)
[2019-07-13 09:56] LABS: BUN/Creatinine Ratio 25 (6-26); Blood Urea Nitrogen 17 mg/dL (6-20); Calcium 9.5 mg/dL (8.6-10.3); Carbon Dioxide 29 mEq/L (23-29); Chloride 102 mEq/L (98-107); Glucose 88 mg/dL (70-105); Osmolality,Calculated 287 (280-300); Potassium 3.9 mEq/L (3.5-5.1); Sodium 138 mEq/L (136-145); eGFR For African Americans > 60 (> 60); eGFR For Non-African Americans > 60 (> 60)
[2019-07-13 12:07] LABS: C-Reactive Protein 20 mg/L (Less than 10)
[2019-07-13] MEDS ORDERED: Naloxone 0.4 MG/ML INJ IVP PRN (15:00)
--- NOTE | 2019-07-13 15:11 | Internal Med History&Physical ---
Date of Encounter: 07/13/19 Time of Encounter: 14:30 Internal Medicine - H&P: HPI Chief complaint: Celulitis Admitted From: Emergency Dept Plans for Post Hospital Care: Home History of present illness: Mr. Finley is a 43 year old male with a past medical history significant for asthma, COPD, IV drug abuse, presented to the emergency department with the complaints of pain and swelling of the left hand. Patient thinks that he injected at the site 3-4 days back. After that injection, swelling slightly got worse and has been worsening since then. He denies fever, chills, rigors. Denies nausea, vomiting. Denies chest pain or shortness of breath. He has asthma and COPD for which he takes inhalers. Denies any past medical history of CAD. Patient was hemodynamically stable in the emergency department. Laboratory workup for significant for ESR of 20, CRP of 20. CT scan showed findings suggesting infectious/inflammatory tenosynovitis of the common extensor digitorum tendon sheath along the dorsal aspect of her hand with surrounding cellulitis. No evidence of acute bone or joint abnormality. Patient was admitted for further management. Past Med Surg Social Fam HX - Past Medical History Medical history: asthma Additional medical history: Hx of MRSA on R thumb Psychiatric history: no psych history - Past Surgical History Surgical History: other Additional surgical history: MRSA I&D - Social History Smoking Status: Current every day smoker Smokeless Tobacco Status: No Alcohol use: none Drug use: opiates, IV Drug Use - Additional Family History Additional family history: Family hx negative for CAD. Internal Medicine - H&P: Meds Albuterol Sulfate [Ventolin Hfa] 2 puff IH Q4H PRN 06/02/18 [History] Beclomethasone Diprop 80mcg [QVAR 80 mcg] 1 puff IH BID 06/02/18 [History] Montelukast [Singulair] 10 mg PO DAILY 07/13/19 [History] Nicotine Patch [Nicoderm] 21 mg TD DAILY 07/13/19 [History] Tiotropium [Spiriva] 18 mcg IH 0700 07/13/19 [History] Allergy/AdvReac Type Severity Reaction Status Date / Time Penicillins Allergy See Verified 02/11/19 09:10 Comments All Systems PM: A 10-system review of systems was performed and is negative for pertinent f indings except as documented above in the HPI. Review of systems: General: Negative for fever, chills, rigors. HEENT: Negative for neck swelling, discharge from nose, discharge from ears. EYES: Negative for any discharge from the eyes. Respiratory: Negative for shortness of breath, orthopnea, exertional dyspnea. Cardiovascular: Negative for chest pain, shortness of breath, orthopnea, PND. Gastrintestical: Negative for diarrhea, constipation, blood in stools. Genitourinary: Negative for dysuria, hematuria, nocturia, increased frequency of urine. Hematological: Negative for blood loss, negative for active cancer. Neurological: Negative for headache, dizziness, blurry vision, loss os power and sensations. Endocrinology: Negative for constipation, polyuria, polydipsia. Integumentary: See HPI Psychiatric: Negative for anxiety or depression. - Constitutional Vitals: Temp Pulse Resp BP Pulse Ox 97.7 F 104 16 133/78 98 07/13/19 08:38 07/13/19 14:59 07/13/19 14:59 07/13/19 14:59 07/13/19 14:59 Exam: General: Alert and oriented, no physical distress, able to follow commands. HEENT: No thyromegaly, no lymphadenopathy, no discharge. Eyes: No discharge. Normal conjuctiva, no icterus Respiratory: Mild wheezing bilateral lung espinosa. CVS: Normal heart sounds, no murmurs, regular rhthm, no edema Extremities: No peripheral edema, peripheral pulses intact. Upper left extremity noted to have edema and tenderness on palpation. Lymph nodes: No lymphadenopathy Gastrointestinal: Soft, nontender abdomen, normal abdominal sounds. No distention noted. Genitourinary: No paravertebral tenderness. Skin: No rash, ulcers or wound. Neurological: Alert and oriented. No focal deficits. Cranial nerves II-XII intact. Internal Med - H&P Results - Labs CBC & Chem 7: 07/13/19 09:15 07/13/19 09:15 Labs: Short CBC 07/13/19 Range/Units 09:15 WBC 5.3 (4.3-11.1) K/mcL Hgb 14.2 (12.9-16.9) g/dL Hct 41.5 (37.5-50.1) % Plt Count 204 (140-400) K/mcL Neutrophils # 2.5 (1.6-8.9) K/mcL BMP 07/13/19 09:15 Sodium 138 Potassium 3.9 Chloride 102 Carbon Dioxide 29 BUN 17 Creatinine 0.68 L Glucose 88 Calcium 9.5 - Impressions ITS Impressions Upper Extremity CT 07/13/19 09:03 IMPRESSION: Findings suggesting infectious/inflammatory tenosynovitis of the common extensor digitorum tendon sheath along the dorsal aspect of the hand with surrounding cellulitis. No evidence of acute bone or joint abnormality. D/ / 07/13/2019 11:02:34 Brian Selby MD / danny Interpreting Provider: Brian Selby MD - Assessment and Plan (1) Tenosynovitis Current Visit: Yes Status: Acute Assessment and plan: CT scan findings mentioned in the history of present illness. In the absence of any systemic signs of infection, hold off on the IV antibiotics. Orthopedics on board. He is being taken to OR today.. (2) Cellulitis Current Visit: Yes Status: Acute Assessment and plan: CT scan findings consistent with cellulitis. In the absence of any systemic signs of infection, we will hold off on antibiotics at this point. Orthopedics on board. Patient has been taken to OR today. Qualifiers: Site of cellulitis: extremity Site of cellulitis of extremity: upper extremity Laterality: left Qualified Code(s): L03.114 - Cellulitis of left upper limb (3) Asthma Current Visit: Yes Status: Acute Assessment and plan: No acute exacerbation. Wheezing on examination. Saturation in the high 90s on room air Continue the home medications. Breathing treatments. Qualifiers: Asthma severity: unspecified severity Asthma persistence: intermittent Asthma complication type: uncomplicated Qualified Code(s): J45.20 - Mild intermittent asthma, uncomplicated (4) IV drug user Current Visit: Yes Status: Acute Assessment and plan: Currently on methadone, had a relapse and injected IV drugs 3-4 days back. No history of withdrawal. Counseled to avoid IV drug abuse. Monitor for this signs of withdrawal. Avoid narcotics. (5) DVT prophylaxis Current Visit: No Status: Acute Assessment and plan: SCD - Time Spent With Patient Total time spent is greater than 50% in coordination of care (as documented) at patient's floor/unit and/or counseling patient:
[2019-07-13] MEDS ORDERED: Ipratropium/Albuterol Neb 3 ML IH PRN ×2 (15:51→20:38)
[2019-07-13] MEDS ORDERED: Ibuprofen 400 MG TABLET PO PRN (16:03)
[2019-07-13] MEDS ORDERED: *HR* OxyCODONE/APAP 5/325 TABLET PO ONE (19:09)
--- NOTE | 2019-07-13 19:17 | Orthopedic Consult Note ---
Date of Encounter: 07/13/19 Time of Encounter: 17:00 Assessment and Plan (1) Tenosynovitis Current Visit: Yes Status: Acute I did have a long discussion with the patient regarding the diagnosis. He does have tenosynovitis as described above, evidenced by clinical exam and CT scanning. This is presumed to be infectious from drug use. Recommendation is for bedside incision and drainage under local anesthetic in order to obtain deep cultures and packed the wound open and continue IV antibiotics. After informed consent and a timeout to identify the correct patient, correct procedure, correct side I did anesthetized the dorsal hand area with 10 mL 1% lidocaine with epinephrine under sterile technique. I then set up a sterile field about the left hand and wrist and using a 15 blade I made a 3 cm longitudinal incision over the area of maximal fluctuance. I did spread through the subcutaneous tissue and entered the bursa/tenosynovium decompressing copious amounts of yellowish translucent tenosynovial fluid. No gross purulence. This fluid was cultured. There was a mild amount of tenosynovitis which was sharply debrided. The extensor tendons were intact and the fourth dorsal compartment. The wound was copiously irrigated and packed open with quarter-inch iodoform packing. A soft, sterile dressing was applied. Continue IV antibiotics over night. Dressing and packing changes tomorrow morning. Keep nothing by mouth after midnight in case he worsens clinically and requires an operative debridement. I have reviewed each of the pertinent components of this chart and any other pertinent medical component(s) including but not limited to pertinent application of the chief complaint, history of present illness, current medication, medical history, allergies, family history, medical history, surgical history, social history, review of systems, vital signs, and any other portion of the pertinent patient medical record directly or indirectly involved with this patient care that is pertinent based on my medical decision process. VIJAY Hubbard History of Present Illness HPI: Mr. Finley is a 43 year old male who is currently admitted to the hospitalist. The patient indicates that he is an IV drug user and may have injected into the left dorsal hand/wrist area about 3-4 days ago, but he says he is not sure. He began having pain and swelling in this area associated with decreased function. The pain is sharp and achy and worse with use and movement and better with rest. He denies any numbness, tingling, or any other associated signs or symptoms or modifying factors. He denies any feelings of illness. He is currently on vancomycin and ceftriaxone under the direction of the hospitalist. Past Med Surg Social Fam HX - Past Medical History Medical history: asthma Additional medical history: Hx of MRSA on R thumb Psychiatric history: no psych history - Past Surgical History Surgical History: other Additional surgical history: MRSA I&D - Social History Smoking Status: Current every day smoker Smokeless Tobacco Status: No Alcohol use: none Drug use: opiates, IV Drug Use Medications and Allergies Albuterol Sulfate [Ventolin Hfa] 2 puff IH Q4H PRN 06/02/18 [History] Beclomethasone Diprop 80mcg [QVAR 80 mcg] 1 puff IH BID 06/02/18 [History] Montelukast [Singulair] 10 mg PO DAILY 07/13/19 [History] Nicotine Patch [Nicoderm] 21 mg TD DAILY 07/13/19 [History] Tiotropium [Spiriva] 18 mcg IH 0700 07/13/19 [History] Allergy/AdvReac Type Severity Reaction Status Date / Time Penicillins Allergy See Verified 02/11/19 09:10 Comments All Systems Reviewed: Constitutional -The patient denies any fevers, chills, or feelings of illness Neurologic -The patient denies any numbness, tingling, or burning pains Physical Exam - Constitutional Vitals: Temp Pulse Resp BP Pulse Ox 97.7 F 66 17 129/70 97 07/13/19 16:15 07/13/19 16:15 07/13/19 16:15 07/13/19 16:15 07/13/19 16:15 CONSTITUTIONAL -Vitals reviewed -The patient is well developed, well nourished, well groomed PSYCHIATRIC -Fully alert and oriented -Pleasant mood LEFT UPPER EXTREMITY Inspection shows focal swelling about the dorsal aspect of the hand just distal to the extensor retinaculum region which is mildly fluctuant. No overlying erythema or induration. This area is quite tender to palpation. He does have difficulties extending and flexing the digits due to the pain. He does demonstrate the ability to actively extend, even though it is weak. Full range of motion of the shoulder and the elbow. Wrist motion and digital motion is decreased due to pain inhibition. The fingertips are all grossly sensate and well-perfused, and the radial artery pulse is 2+. Diagnostic Imaging: I did personally review and interpret the CT scan with contrast of the left hand/wrist area which demonstrates enhancement along the fourth dorsal compartment consistent with tenosynovitis Results - Labs Result Diagrams: 07/13/19 09:15 07/13/19 09:15 Labs: Abnormal lab results ESR 30 mm/hr (0-10) H 07/13/19 09:15 Creatinine 0.68 mg/dL (0.70-1.30) L 07/13/19 09:15 C-Reactive Protein 20 mg/L (Less than 10) H 07/13/19 09:15 H & H 07/13/19 Range/Units 09:15 Hgb 14.2 (12.9-16.9) g/dL Hct 41.5 (37.5-50.1) % All other labs normal. Consult Discharge Plan - Plan Referrals: Danilo Faustin MD [Primary Care Provider] -
[2019-07-13] MEDS ORDERED: Nicotine 21 MG PATCH.TD24 TD STA (20:16)
[2019-07-13] MEDS ORDERED: cefTRIAXone 2,000 MG in 0.9 % Sodium Chloride Mini Bag 100 ML IVPB SCH (23:00)
[2019-07-13] MEDS ORDERED: methylPREDNISolone 125 MG/2 ML VIAL IVP ONE (23:30)
[2019-07-14 02:36] LABS: Adenovirus Not Detected (Not Detect); Bordetella Pertussis Not Detected (Not Detect); Chlamydophila pneumoniae Not Detected (Not Detect); Coronavirus 229E Not Detected (Not Detect); Coronavirus HKU1 Not Detected (Not Detect); Coronavirus NL63 Not Detected (Not Detect); Coronavirus OC43 Not Detected (Not Detect); Human Metapneumovirus Not Detected (Not Detect); Human Rhinovirus/Enterovirus Not Detected (Not Detect); Influenza A Subtype 2009 H1 Not Detected (Not Detect); Influenza A Untypeable Not Detected (Not Detect); Influenza B Not Detected (Not Detect); Mycoplasma pneumoniae Not Detected (Not Detect); Parainfluenza Virus 1 Not Detected (Not Detect); Parainfluenza Virus 2 Not Detected (Not Detect); Parainfluenza Virus 3 Not Detected (Not Detect); Parainfluenza Virus 4 Not Detected (Not Detect); Respiratory Syncytial Virus Not Detected (Not Detect)
[2019-07-14 04:52] LABS: Eosinophils # 0.1 K/mcL (0.0-0.6); Eosinophils % 1.5 %; Hematocrit 41.8 % (37.5-50.1); Hemoglobin 13.8 g/dL (12.9-16.9); Immature Granulocytes % 0.2 % (0-4); Lymphocytes # 0.8 K/mcL (0.6-4.6); Lymphocytes % 17.1 %; Mean Corpuscular Hemoglobin 30.7 pg (28.0-33.3); Mean Corpuscular Volume 92.9 fL (83.0-100.0); Mean Platelet Volume 11.2 fL (9.4-12.4); Monocytes # 0.1 K/mcL (0.0-1.3); Monocytes % 2.3 %; Neutrophils # 3.8 K/mcL (1.6-8.9); Platelet Count 194 K/mcL (140-400); Red Cell Distribution Width 13.2 % (11.5-14.5); Segmented Neutrophils % 78.9 %; White Blood Count 4.8 K/mcL (4.3-11.1)
[2019-07-14 05:13] LABS: BUN/Creatinine Ratio 22 (6-26); Blood Urea Nitrogen 15 mg/dL (6-20); Calcium 9.5 mg/dL (8.6-10.3); Carbon Dioxide 24 mEq/L (23-29); Chloride 104 mEq/L (98-107); Glucose 166 mg/dL (70-105); Osmolality,Calculated 287 (280-300); Potassium 3.8 mEq/L (3.5-5.1); Sodium 136 mEq/L (136-145); eGFR For African Americans > 60 (> 60); eGFR For Non-African Americans > 60 (> 60)
[2019-07-14 06:48] VITALS: BP 112/70
[2019-07-14] MEDS ORDERED: Tiotropium 18 MCG inhalation IH SCH (07:00)
--- NOTE | 2019-07-14 07:27 | Event Note ---
Date of Encounter: 07/13/19 Time of Encounter: 19:[address] Olivas about this patient. Dr. Olivas did a bedside I&D today. Patient was placed on Vancomycin. Dr. Olivas requested abx coverage for gram - bacteria. Patient is allergic to penicillin. Went to see the pt. who was resting in bed. Discussed his allergy to penicillin which he could not remember his rxn to as he was a child at the time. Patient stated he feels as though he is getting a respiratory infection and states he is usually given steroids to prevent it from worsening. Stat respiratory infection panel ordered. One-time dose of Solu-Medrol 80 mg IVP ordered along with DuoNeb's every 4 when necessary. Discussed patient's allergy with pharmacist who recommended Rocephin versus Levaquin for gram-negative coverage as being the better choice. IVPB Rocephin ordered to start now. Dr. Olivas to see patient in the a.m. to determine if he wants to discharge the patient on by mouth Bactrim. Nurse instructed to continue monitoring this patient very closely and alert me immediately of any adverse changes.
--- NOTE | 2019-07-14 07:42 | Orthopedics Progress Note ---
Date of Encounter: 07/14/19 Time of Encounter: 07:40 - Assessment and Plan (1) Tenosynovitis Current Visit: Yes Status: Acute Subjective Interval history: S: Patient resting in bed comfortably Improved pain to the left dorsal wrist O: Afebrile on the vital signs are stable Left dorsal wrist wound with mild bloody drainage No purulence Packing was changed No further fluctuance No cellulitis Improved motion of the wrist and the digits The fingertips are all grossly sensate and well-perfused, and the radial artery pulse is 2+. A: Post I&D of the left dorsal hand area P: At this point the patient is doing well clinically and has improved. Okay to discharge on oral antibiotics with close clinical follow-up Follow-up with me in the office on Wednesday for clinical reevaluation I did discuss daily dressing changes and packing changes with the patient including warm soapy soaks Elevation and digital motion exercises to reduce swelling and stiffness Objective Vital signs: Vital Signs Temp Pulse Resp BP Pulse Ox 07/14/19 06:47 98.0 F 60 18 112/70 95 07/13/19 23:10 98.0 F 57 14 131/86 93 07/13/19 19:45 98.4 F 73 15 133/86 93 07/13/19 16:15 97.7 F 66 17 129/70 97 07/13/19 14:59 104 16 133/78 98 07/13/19 14:03 46 18 112/83 97 07/13/19 08:38 97.7 F 56 18 124/73 93 Intake and Output 07/13/19 07/13/19 07/14/19 15:59 23:59 07:59 Intake Total 250 / 250 100 / 100 Balance 250 / 250 100 / 100 Intake: IV Fluids 250 / 250 100 / 100 Vancocin 1,000 MG In 0.9 % 250 / 250 Sodium Chloride 250 ML @ 167 mls/hr IVPB Q12H [facility] Rx#: [id number] Rocephin 2,000 MG In 0.9 % 100 / 100 Sodium Chloride (Mini-Bag +) 100 ML @ 200 mls/hr IVPB Q12H [facility] Rx#:[id number] Other: Weight 68.039 kg Blood Glucose* 168 - Labs CBC & BMP: 07/14/19 04:30 07/14/19 04:30 Labs: Abnormal lab results ESR 30 mm/hr (0-10) H 07/13/19 09:15 Creatinine 0.68 mg/dL (0.70-1.30) L 07/14/19 04:30 Glucose 166 mg/dL (70-105) H 07/14/19 04:30 C-Reactive Protein 20 mg/L (Less than 10) H 07/13/19 09:15 Consult Discharge Plan - Plan Referrals: Danilo Faustin MD [Primary Care Provider] -
--- NOTE | 2019-07-14 08:09 | Discharge Summary ---
- NOTES TO OUTPATIENT PROVIDER Notes to Outpatient Provider: Came wiht the cellulitis for the left hand following IV drug use. Dischagred on 7 days course of bactrim. Orders not resulted at time of discharge: Pending orders 07/13/19 19:05 Culture,Anaerobic [RM] Routine Culture,Wound [RM] Routine Date of Encounter: 07/14/19 Time of Encounter: 08:00 - Discharge Diagnosis (1) Tenosynovitis Priority: Primary Status: Acute (2) Cellulitis Priority: Secondary Status: Acute Qualifiers: Site of cellulitis: extremity Site of cellulitis of extremity: upper extremity Laterality: left Qualified Code(s): L03.114 - Cellulitis of left upper limb (3) Asthma Priority: Secondary Status: Acute Qualifiers: Asthma severity: unspecified severity Asthma persistence: intermittent Asthma complication type: uncomplicated Qualified Code(s): J45.20 - Mild intermittent asthma, uncomplicated (4) IV drug user Priority: Secondary Status: Acute (5) DVT prophylaxis Priority: Secondary Status: Acute Hospital course: Mr. Finley is a 43 year old male with a past medical history significant for asthma, IV drug abuse, presented to the hospital with a falling of the left hand. CT scan was concerning for tenosynovitis of the common extensor digitorum tendon sheath along the dorsal aspect of the hand with surrounding cellulitis. Surgery was consulted. Incision and drainage of the swelling was done with recovery of copious amount of yellow translucent tenosynovial fluid without any gross purulence. The wound was irrigated and packed. He was continued overnight On the IV antibiotics. He was seen by the orthopedic surgeon in the morning. As per surgery, patient can be discharged to home. He will be discharged on Bactrim for 7 more days. Also ordered prednisone 20 mg for 5 more days because of the patient wheezing and mild asthma exacerbation. Medications sent to the pharmacy. Patient was advised not to use IV drugs. - Time Spent with Patient Total time spent providing and/or coordinating discharge services: 25 minutes - Discharge Medications Prescriptions: New Sulfamethoxazole/Trimeth DS [Bactrim DS] 1 each PO BID 10 Days #14 tablet PredniSONE [Deltasone] 20 mg PO DAILY 5 Days #5 tablet Ibuprofen [Motrin] 400 mg PO Q6HR PRN tablet PRN Reason: Fever/Pain Continued Albuterol Sulfate [Ventolin Hfa] 2 puff IH Q4H PRN PRN Reason: Dyspnea Beclomethasone Diprop 80mcg [QVAR 80 mcg] 1 puff IH BID Montelukast [Singulair] 10 mg PO DAILY Nicotine Patch [Nicoderm] 21 mg TD DAILY Tiotropium [Spiriva] 18 mcg IH 0700 Home Medications: Albuterol Sulfate [Ventolin Hfa] 2 puff IH Q4H PRN 06/02/18 [History] Beclomethasone Diprop 80mcg [QVAR 80 mcg] 1 puff IH BID 06/02/18 [History] Montelukast [Singulair] 10 mg PO DAILY 07/13/19 [History] Nicotine Patch [Nicoderm] 21 mg TD DAILY 07/13/19 [History] Tiotropium [Spiriva] 18 mcg IH 0700 07/13/19 [History] Ibuprofen [Motrin] 400 mg PO Q6HR PRN tablet 07/14/19 [Rx] PredniSONE [Deltasone] 20 mg PO DAILY 5 Days #5 tablet 07/14/19 [Rx] Sulfamethoxazole/Trimeth DS [Bactrim DS] 1 each PO BID 10 Days #14 tablet 07/14/19 [Rx] Allergies/Adverse Reactions: Allergy/AdvReac Type Severity Reaction Status Date / Time Penicillins Allergy See Verified 02/11/19 09:10 Comments Date of admission: 07/13/19 14:45 Primary care physician: Danilo Faustin MD Consults: 07/13/19 12:25 Consult to Orthopedic Surgery [CONS] Stat Consulting Provider: Richard Olivas Reason for Consult: Tenosynovitis Call Completed: Yes - Constitutional Vitals: Temp Pulse Resp BP Pulse Ox 98.0 F 60 18 112/70 95 07/14/19 06:47 07/14/19 06:47 07/14/19 06:47 07/14/19 06:47 07/14/19 06:47 Exam: General: Alert and oriented, no physical distress, able to follow commands. HEENT: No thyromegaly, no lymphadenopathy, no discharge. Eyes: No discharge. Normal conjuctiva, no icterus Respiratory: Mild wheezing bilateral lung espinosa. CVS: Normal heart sounds, no murmurs, regular rhthm, no edema Extremities: No peripheral edema, peripheral pulses intact. Upper left extremity dressed and packed. Lymph nodes: No lymphadenopathy Gastrointestinal: Soft, nontender abdomen, normal abdominal sounds. No distention noted. Genitourinary: No paravertebral tenderness. Skin: No rash, ulcers or wound. Neurological: Alert and oriented. No focal deficits. Cranial nerves II-XII intact. - Patient Status Disposition: Home, Self-Care Condition: Good Functional capacity at discharge: independent ambulation Overall status at discharge: patient is progressing back to baseline - Discharge Instructions Follow Up With: Danilo Faustin MD [Primary Care Provider] - - Diet and Activity Activity: increase activity as tolerated Diet: advance to your usual diet
[2019-07-14] MEDS ORDERED: Nicotine 21 MG PATCH.TD24 TD SCH (09:00)
[2019-07-14] MEDS ORDERED: Aminoglycoside Consult 1 EACH MC ONE (09:56)
== END 2019-07-14 09:57 | disposition home or self-care (01) ==
LOC: EMEROOARM 08:37 → 3ANU 08:37
PROVIDERS: ADMIT Internal Medicine; ATTEND Internal Medicine

== ENCOUNTER 2019-08-09 10:27 | Observation (INO) ==
[2019-08-09] MEDS ORDERED: Isovue-370 500 ML BOTTLE IVP ONE (11:09)
[2019-08-09] MEDS ORDERED: Ondansetron ODT 4 MG TAB.RAPDIS SL ONE (11:11)
[2019-08-09] MEDS ORDERED: 0.9 % Sodium Chloride 1,000 ML IVC STA (11:11)
[2019-08-09] MEDS ORDERED: Ipratropium/Albuterol Neb 3 ML IH ONE (11:17)
[2019-08-09 11:38] LABS: Basophils % 0.1 %; Eosinophils # 0.1 K/mcL (0.0-0.6); Eosinophils % 0.5 %; Hematocrit 40.3 % (37.5-50.1); Hemoglobin 13.8 g/dL (12.9-16.9); Immature Granulocytes % 0.5 % (0-4); Lymphocytes # 1.2 K/mcL (0.6-4.6); Lymphocytes % 7.3 %; Mean Corpuscular HGB Conc 34.2 g/dL (31.6-35.5); Mean Corpuscular Hemoglobin 31.7 pg (28.0-33.3); Mean Corpuscular Volume 92.4 fL (83.0-100.0); Mean Platelet Volume 10.4 fL (9.4-12.4); Monocytes # 1.1 K/mcL (0.0-1.3); Monocytes % 6.7 %; Neutrophils # 14.4 K/mcL (1.6-8.9); Platelet Count 175 K/mcL (140-400); Red Blood Count 4.36 M/mcL (4.19-5.50); Red Cell Distribution Width 13.3 % (11.5-14.5); Segmented Neutrophils % 84.9 %
[2019-08-09 11:58] LABS: Alanine Aminotransferase 46 Units/L (7-52); Albumin 3.6 g/dL (3.5-5.7); Albumin/Globulin Ratio 1.3 (1.1-2.2); Alkaline Phosphatase 69 Units/L (34-104); Aspartate Amino Transferase 34 Units/L (13-39); BUN/Creatinine Ratio 19 (6-26); Bilirubin,Direct 0.3 mg/dL (0.0-0.2); Bilirubin,Indirect 1.3 mg/dL (0.0-1.2); Bilirubin,Total 1.6 mg/dL (0.3-1.0); Blood Urea Nitrogen 14 mg/dL (6-20); Calcium 8.8 mg/dL (8.6-10.3); Carbon Dioxide 27 mEq/L (23-29); Chloride 97 mEq/L (98-107); Globulin 2.8 g/dL (2.4-3.5); Glucose 240 mg/dL (70-105); Magnesium 2.1 mg/dL (1.6-2.6); Osmolality,Calculated 282 (280-300); Potassium 3.7 mEq/L (3.5-5.1); Sodium 132 mEq/L (136-145); Total Protein 6.4 g/dL (6.4-8.9); eGFR For African Americans > 60 (> 60); eGFR For Non-African Americans > 60 (> 60)
[2019-08-09] MEDS ORDERED: methylPREDNISolone 125 MG/2 ML VIAL IVP ONE (11:58)
[2019-08-09 12:19] LABS: C-Reactive Protein 146 mg/L (Less than 10)
[2019-08-09] MEDS ORDERED: cefTRIAXone 2,000 MG in Water for inj. (sterile) 10 ML IVP STA (12:27)
[2019-08-09 12:46] LABS: Bilirubin,Urine Small (Negative); Blood,Urine Negative (Negative); Clarity,Urine Clear (Clear); Glucose,Urine (UA) 100 mg/dL (Normal); Ketones,Urine 40 mg/dL (Negative); Leukocyte Esterase,Urine Negative (Negative); Nitrite,Urine Negative (Negative); Protein,Urine Negative (Neg-Trace); Specific Gravity,Urine > 1.030 (1.010-1.025); Urobilinogen,Urine Normal (Normal)
[2019-08-09 12:49] LABS: Color,Urine Yellow (Yellow)
[2019-08-09] MEDS ORDERED: Ondansetron 4 MG/2 ML VIAL IVP PRN (14:40)
[2019-08-09] MEDS ORDERED: Naloxone 0.4 MG/ML INJ IVP PRN (14:40)
[2019-08-09] MEDS ORDERED: Acetaminophen 325 MG TABLET PO PRN (14:40)
[2019-08-09 16:46] LABS: Amphetamine Screen,Urine Positive ng/mL (Cutoff=1000); Barbiturate Screen,Urine Negative ng/mL (Cutoff=200); Benzodiazepines Screen,Urine Negative ng/mL (Cutoff=200); Cannabinoid Screen,Urine Negative ng/mL (Cutoff = 50); Cocaine Screen,Urine Positive ng/mL (Cutoff= 300); Opiate Screen,Urine Negative ng/mL (Cutoff=300); Phencyclidine Screen,Urine Negative ng/mL (Cutoff=25)
[2019-08-09] MEDS: Nystatin SUSP 5 ML UD.LIQ PO SCH ×2 (19:31→19:43)
[2019-08-09] MEDS: GI Cocktail 40 ML EACH PO SCH (19:33)
[2019-08-09 21:46] LABS: Hepatitis B Surface Antigen Nonreactive (Nonreactive)
[2019-08-09 22:24] LABS: HIV-1&2 Antibody & p24 Ag Nonreactive (Nonreactive)
[2019-08-09] MEDS: *HR* Heparin 5,000 UNIT/ML VIAL SQ SCH (23:25)
[2019-08-10] MEDS ORDERED: Ipratropium/Albuterol Neb 3 ML IH PRN (04:10)
[2019-08-10 04:31] LABS: Basophils % 0.1 %; Eosinophils % 0.1 %; Hematocrit 37.9 % (37.5-50.1); Hemoglobin 12.6 g/dL (12.9-16.9); Immature Granulocytes % 0.3 % (0-4); Lymphocytes # 0.9 K/mcL (0.6-4.6); Lymphocytes % 7.3 %; Mean Corpuscular HGB Conc 33.2 g/dL (31.6-35.5); Mean Corpuscular Hemoglobin 31.5 pg (28.0-33.3); Mean Corpuscular Volume 94.8 fL (83.0-100.0); Mean Platelet Volume 10.7 fL (9.4-12.4); Monocytes # 0.8 K/mcL (0.0-1.3); Monocytes % 6.4 %; Neutrophils # 10.2 K/mcL (1.6-8.9); Platelet Count 166 K/mcL (140-400); Red Cell Distribution Width 13.2 % (11.5-14.5); Segmented Neutrophils % 85.8 %; White Blood Count 11.8 K/mcL (4.3-11.1)
[2019-08-10 04:55] LABS: BUN/Creatinine Ratio 22 (6-26); Blood Urea Nitrogen 13 mg/dL (6-20); Calcium 8.5 mg/dL (8.6-10.3); Carbon Dioxide 24 mEq/L (23-29); Chloride 104 mEq/L (98-107); Glucose 185 mg/dL (70-105); Magnesium 2.2 mg/dL (1.6-2.6); Osmolality,Calculated 291 (280-300); Potassium 3.9 mEq/L (3.5-5.1); Sodium 138 mEq/L (136-145); eGFR For African Americans > 60 (> 60); eGFR For Non-African Americans > 60 (> 60)
[2019-08-10] MEDS: *HR* Heparin 5,000 UNIT/ML VIAL SQ SCH ×3 (06:05→20:33)
[2019-08-10] MEDS ORDERED: Azithromycin 500 MG in 0.9 % Sodium Chloride 250 ML IVPB SCH (08:00)
[2019-08-10] MEDS ORDERED: Azithromycin 500 MG in 0.9 % Sodium Chloride 250 ML IVPB ONE (09:10)
[2019-08-10] MEDS: cefTRIAXone 2,000 MG in 0.9 % Sodium Chloride Mini Bag 100 ML IVPB SCH (10:14)
[2019-08-10] MEDS ORDERED: GI Cocktail 40 ML EACH PO PRN (10:30)
[2019-08-10] MEDS: GI Cocktail 40 ML EACH PO SCH (10:56)
[2019-08-10] MEDS: Nystatin SUSP 5 ML UD.LIQ PO SCH ×4 (10:57→20:33)
[2019-08-10] MEDS: Methadone Oral Concentrate 50 MG/5 ML UDC PO SCH (11:57)
[2019-08-10] MEDS ORDERED: Ibuprofen 400 MG TABLET PO PRN (12:09)
[2019-08-10] MEDS ORDERED: Nicotine 21 MG PATCH.TD24 TD SCH (12:15)
[2019-08-10] MEDS: Nicotine 14 MG PATCH.TD24 TD SCH (12:20)
[2019-08-10] MEDS ORDERED: cefTRIAXone 2,000 MG in Water for inj. (sterile) 20 ML IVP SCH (13:00)
[2019-08-10] MEDS ORDERED: Aminoglycoside Consult 1 EACH MC ONE (13:57)
[2019-08-10] MEDS ORDERED: MethylPREDNISolone 40 MG/ML VIAL IVP SCH (14:00)
[2019-08-10] MEDS: MethylPREDNISolone 40 MG/ML VIAL IVP SCH ×2 (14:36→23:59)
[2019-08-10 14:51] LABS: Hepatitis C Virus Antibody Reactive (Nonreactive)
[2019-08-10] MEDS: Budesonide/Formoterol 160/4.5 1 PUFF INH IH SCH ×2 (15:22→20:09)
[2019-08-10] MEDS: Ipratropium/Albuterol Neb 3 ML IH SCH ×4 (15:22→23:37)
[2019-08-11] MEDS ORDERED: Ipratropium/Albuterol Neb 3 ML IH PRN (00:17)
[2019-08-11 04:11] LABS: Hematocrit 36.2 % (37.5-50.1); Immature Granulocytes % 0.3 % (0-4); Lymphocytes # 0.8 K/mcL (0.6-4.6); Lymphocytes % 7.9 %; Mean Corpuscular HGB Conc 33.1 g/dL (31.6-35.5); Mean Corpuscular Hemoglobin 31.3 pg (28.0-33.3); Mean Corpuscular Volume 94.3 fL (83.0-100.0); Monocytes # 0.2 K/mcL (0.0-1.3); Monocytes % 2.3 %; Neutrophils # 9.1 K/mcL (1.6-8.9); Platelet Count 185 K/mcL (140-400); Red Blood Count 3.84 M/mcL (4.19-5.50); Red Cell Distribution Width 13.4 % (11.5-14.5); Segmented Neutrophils % 89.5 %; White Blood Count 10.1 K/mcL (4.3-11.1)
[2019-08-11 04:29] LABS: BUN/Creatinine Ratio 24 (6-26); Blood Urea Nitrogen 14 mg/dL (6-20); Calcium 8.9 mg/dL (8.6-10.3); Carbon Dioxide 27 mEq/L (23-29); Chloride 104 mEq/L (98-107); Glucose 161 mg/dL (70-105); Osmolality,Calculated 284 (280-300); Phosphorous 1.7 mg/dL (2.7-4.5); Potassium 3.9 mEq/L (3.5-5.1); Sodium 135 mEq/L (136-145); eGFR For African Americans > 60 (> 60); eGFR For Non-African Americans > 60 (> 60)
[2019-08-11] MEDS: *HR* Heparin 5,000 UNIT/ML VIAL SQ SCH ×3 (04:50→21:16)
[2019-08-11] MEDS ORDERED: Tiotropium 18 MCG inhalation IH SCH (07:00)
[2019-08-11] MEDS: Budesonide/Formoterol 160/4.5 1 PUFF INH IH SCH ×2 (07:21→19:59)
[2019-08-11] MEDS: Nystatin SUSP 5 ML UD.LIQ PO SCH ×4 (09:11→21:16)
[2019-08-11] MEDS: MethylPREDNISolone 40 MG/ML VIAL IVP SCH ×2 (09:11→17:52)
[2019-08-11] MEDS: cefTRIAXone 2,000 MG in 0.9 % Sodium Chloride Mini Bag 100 ML IVPB SCH (09:11)
[2019-08-11] MEDS: Methadone Oral Concentrate 50 MG/5 ML UDC PO SCH (09:12)
[2019-08-11] MEDS: Nicotine 14 MG PATCH.TD24 TD SCH (09:12)
[2019-08-11] MEDS: Azithromycin 250 MG TABLET PO SCH (09:12)
[2019-08-11] MEDS ORDERED: Magic Mouthwash 10 ML UD Cup PO PRN (09:35)
[2019-08-11] MEDS ORDERED: Ipratropium/Albuterol Neb 3 ML IH SCH (10:00)
[2019-08-11] MEDS ORDERED: MethylPREDNISolone 40 MG/ML VIAL IVP SCH (10:45)
[2019-08-11] MEDS: Stomatitis Mixture 5 ML UDC PO PRN (13:01)
[2019-08-12 06:06] LABS: Basophils % 0.1 %; Hematocrit 37.5 % (37.5-50.1); Hemoglobin 12.2 g/dL (12.9-16.9); Immature Granulocytes % 1.1 % (0-4); Lymphocytes # 1.2 K/mcL (0.6-4.6); Mean Corpuscular HGB Conc 32.5 g/dL (31.6-35.5); Mean Corpuscular Hemoglobin 31.7 pg (28.0-33.3); Mean Corpuscular Volume 97.4 fL (83.0-100.0); Mean Platelet Volume 11.1 fL (9.4-12.4); Monocytes # 0.8 K/mcL (0.0-1.3); Monocytes % 5.1 %; Neutrophils # 12.8 K/mcL (1.6-8.9); Platelet Count 217 K/mcL (140-400); Red Blood Count 3.85 M/mcL (4.19-5.50); Red Cell Distribution Width 13.6 % (11.5-14.5); Segmented Neutrophils % 85.7 %
[2019-08-12] MEDS: Nystatin SUSP 5 ML UD.LIQ PO SCH ×4 (06:27→20:53)
[2019-08-12] MEDS: MethylPREDNISolone 40 MG/ML VIAL IVP SCH ×2 (06:27→17:23)
[2019-08-12] MEDS: *HR* Heparin 5,000 UNIT/ML VIAL SQ SCH ×3 (06:27→20:53)
[2019-08-12 07:00] LABS: BUN/Creatinine Ratio 29 (6-26); Blood Urea Nitrogen 16 mg/dL (6-20); Calcium 9.1 mg/dL (8.6-10.3); Carbon Dioxide 26 mEq/L (23-29); Chloride 104 mEq/L (98-107); Glucose 150 mg/dL (70-105); Magnesium 1.9 mg/dL (1.6-2.6); Osmolality,Calculated 288 (280-300); Phosphorous 2.6 mg/dL (2.7-4.5); Potassium 3.2 mEq/L (3.5-5.1); Sodium 137 mEq/L (136-145); eGFR For African Americans > 60 (> 60); eGFR For Non-African Americans > 60 (> 60)
[2019-08-12] MEDS: Methadone Oral Concentrate 50 MG/5 ML UDC PO SCH (07:57)
[2019-08-12] MEDS: Azithromycin 250 MG TABLET PO SCH (07:58)
[2019-08-12] MEDS: Nicotine 14 MG PATCH.TD24 TD SCH (07:58)
[2019-08-12] MEDS: cefTRIAXone 2,000 MG in 0.9 % Sodium Chloride Mini Bag 100 ML IVPB SCH (07:59)
[2019-08-12] MEDS: Potassium Chloride Elixir 20 MEQ/15 ML UDC PO SCH ×2 (08:26→11:28)
[2019-08-12] MEDS ORDERED: Lidocaine Viscous Oral Soln 15 ML SOLUTION MM PRN (09:20)
[2019-08-12] MEDS: Albuterol 2.5 MG/3 ML NEBULIZER IH SCH ×5 (11:12→23:06)
[2019-08-12] MEDS: Budesonide/Formoterol 160/4.5 1 PUFF INH IH SCH ×2 (11:12→20:05)
[2019-08-12] MEDS: Acetylcysteine 10% 2 ML INHSOL IH SCH ×3 (11:12→23:07)
[2019-08-13] MEDS ORDERED: Albuterol 2.5 MG/3 ML NEBULIZER IH PRN (02:18)
[2019-08-13] MEDS: MethylPREDNISolone 40 MG/ML VIAL IVP SCH (05:24)
[2019-08-13] MEDS: Stomatitis Mixture 5 ML UDC PO PRN (05:24)
[2019-08-13] MEDS: *HR* Heparin 5,000 UNIT/ML VIAL SQ SCH (05:25)
[2019-08-13 06:48] VITALS: BP 155/87
[2019-08-13 06:52] LABS: Basophils # 0.1 K/mcL (0.0-0.2); Basophils % 0.4 %; Hematocrit 39.9 % (37.5-50.1); Hemoglobin 12.8 g/dL (12.9-16.9); Immature Granulocytes % 2.1 % (0-4); Lymphocytes # 1.7 K/mcL (0.6-4.6); Lymphocytes % 12.3 %; Mean Corpuscular HGB Conc 32.1 g/dL (31.6-35.5); Mean Corpuscular Hemoglobin 31.2 pg (28.0-33.3); Mean Corpuscular Volume 97.3 fL (83.0-100.0); Monocytes # 0.7 K/mcL (0.0-1.3); Monocytes % 5.3 %; Neutrophils # 11.1 K/mcL (1.6-8.9); Nucleated Red Blood Cells 0.2 /100 WBC (0); Platelet Count 243 K/mcL (140-400); Red Cell Distribution Width 13.9 % (11.5-14.5); Segmented Neutrophils % 79.9 %; White Blood Count 13.9 K/mcL (4.3-11.1)
[2019-08-13 07:11] LABS: BUN/Creatinine Ratio 27 (6-26); Blood Urea Nitrogen 15 mg/dL (6-20); Calcium 9.5 mg/dL (8.6-10.3); Carbon Dioxide 32 mEq/L (23-29); Chloride 100 mEq/L (98-107); Glucose 135 mg/dL (70-105); Magnesium 2.2 mg/dL (1.6-2.6); Osmolality,Calculated 285 (280-300); Phosphorous 3.7 mg/dL (2.7-4.5); Potassium 3.8 mEq/L (3.5-5.1); Sodium 136 mEq/L (136-145); eGFR For African Americans > 60 (> 60); eGFR For Non-African Americans > 60 (> 60)
[2019-08-13] MEDS: Nystatin SUSP 5 ML UD.LIQ PO SCH (07:33)
[2019-08-13] MEDS: Nicotine 14 MG PATCH.TD24 TD SCH (07:34)
[2019-08-13] MEDS: Budesonide/Formoterol 160/4.5 1 PUFF INH IH SCH (07:51)
[2019-08-13] MEDS: cefTRIAXone 2,000 MG in 0.9 % Sodium Chloride Mini Bag 100 ML IVPB SCH (10:00)
[2019-08-13] MEDS: Azithromycin 250 MG TABLET PO SCH (10:01)
[2019-08-13] MEDS: Methadone Oral Concentrate 50 MG/5 ML UDC PO SCH (11:09)
== END 2019-08-13 11:52 | disposition home or self-care (01) ==
LOC: 2ANU 10:27 → EMEROOARM 10:27 → 2ANU 15:06
PROVIDERS: ADMIT Pharmacist; ATTEND Pharmacist

== ENCOUNTER 2022-07-07 13:06 | Observation (INO) ==
[2022-07-07] MEDS ORDERED: 0.9 % Sodium Chloride 1,000 ML IVC ONE (15:00)
[2022-07-07] MEDS ORDERED: Vancomycin 1,500 MG/265 ML IV.SOLN IVPB ONE (15:03)
[2022-07-07] MEDS ORDERED: Cefepime HCl 2,000 MG in 0.9 % Sodium Chloride Mini Bag 100 ML IVPB ONE (15:06)
[2022-07-07] MEDS ORDERED: Iopamidol - 370 500 ML MLS IVP ONE (15:34)
[2022-07-07 17:06] LABS: Calcium 9.4 mg/dL (8.6-10.3); Potassium 3.6 mEq/L (3.5-5.1)
[2022-07-07 17:22] LABS: Basophils % 0.2 %; Eosinophils # 0.3 K/mcL (0.0-0.6); Eosinophils % 3.3 %; Hematocrit 39.9 % (37.5-50.1); Hemoglobin 13.2 g/dL (12.9-16.9); Immature Granulocytes % 0.2 % (0-4); Lymphocytes # 2.2 K/mcL (0.6-4.6); Lymphocytes % 26.4 %; Mean Corpuscular HGB Conc 33.1 g/dL (31.6-35.5); Mean Corpuscular Hemoglobin 30.9 pg (28.0-33.3); Mean Corpuscular Volume 93.4 fL (83.0-100.0); Mean Platelet Volume 10.8 fL (9.4-12.4); Monocytes # 0.8 K/mcL (0.0-1.3); Monocytes % 9.3 %; Platelet Count 233 K/mcL (140-400); Red Blood Count 4.27 M/mcL (4.19-5.50); Red Cell Distribution Width 12.7 % (11.5-14.5); Segmented Neutrophils % 60.6 %; White Blood Count 8.2 K/mcL (4.3-11.1)
[2022-07-07] MEDS ORDERED: Clindamycin 600 MG/50 ML 600 MG/50 ML IV.SOLN IVPB ONE (17:46)
[2022-07-07 19:50] VITALS: PULSE 69
[2022-07-07] MEDS ORDERED: Melatonin 3 MG TABLET PO PRN (21:14)
[2022-07-07] MEDS ORDERED: Ondansetron ODT 4 MG TAB.RAPDIS SL PRN (21:14)
[2022-07-07] MEDS ORDERED: Naloxone 0.4 MG/ML INJ IVP PRN (21:14)
[2022-07-07] MEDS ORDERED: 0.9 % Sodium Chloride 1,000 ML ONE (22:00)
[2022-07-07] MEDS: 0.9 % Sodium Chloride 1,000 ML IV SCH (22:10)
[2022-07-07 22:55] VITALS: BP 108/59; TEMP 97.8
[2022-07-08] MEDS: Cefepime HCl 2,000 MG in 0.9 % Sodium Chloride 10 ML IVP SCH ×3 (00:08→23:02)
[2022-07-08 00:24] LABS: Bilirubin,Urine Negative (Negative); Blood,Urine Negative (Negative); Clarity,Urine Clear (Clear); Color,Urine Colorless (Yellow); Glucose,Urine (UA) Normal (Normal); Ketones,Urine Negative (Negative); Leukocyte Esterase,Urine Negative (Negative); Nitrite,Urine Negative (Negative); Protein,Urine Negative (Neg-Trace); Specific Gravity,Urine 1.012 (1.010-1.025); Urobilinogen,Urine Normal (Normal)
[2022-07-08 00:33] LABS: Amphetamine Screen,Urine Negative ng/mL (Cutoff=1000); Barbiturate Screen,Urine Negative ng/mL (Cutoff=200); Benzodiazepines Screen,Urine Negative ng/mL (Cutoff=200); Cannabinoid Screen,Urine Negative ng/mL (Cutoff = 50); Cocaine Screen,Urine Negative ng/mL (Cutoff= 300); Creatinine,Urine 58 mg/dL; Opiate Screen,Urine Negative ng/mL (Cutoff=300); Phencyclidine Screen,Urine Negative ng/mL (Cutoff=25); Sodium, Urine 56.4 mEq/L
[2022-07-08] MEDS: Clindamycin 600 MG/50 ML 600 MG/50 ML IV.SOLN IVPB SCH ×3 (02:43→16:34)
[2022-07-08 05:49] LABS: Basophils % 0.4 %; Eosinophils # 0.2 K/mcL (0.0-0.6); Eosinophils % 4.8 %; Hemoglobin 11.8 g/dL (12.9-16.9); Immature Granulocytes % 0.2 % (0-4); Lymphocytes # 1.9 K/mcL (0.6-4.6); Lymphocytes % 38.5 %; Mean Corpuscular HGB Conc 33.7 g/dL (31.6-35.5); Mean Corpuscular Hemoglobin 31.3 pg (28.0-33.3); Mean Corpuscular Volume 92.8 fL (83.0-100.0); Mean Platelet Volume 10.8 fL (9.4-12.4); Monocytes # 0.5 K/mcL (0.0-1.3); Monocytes % 11.2 %; Neutrophils # 2.2 K/mcL (1.6-8.9); Platelet Count 136 K/mcL (140-400); Red Blood Count 3.77 M/mcL (4.19-5.50); Red Cell Distribution Width 12.5 % (11.5-14.5); Segmented Neutrophils % 44.9 %; White Blood Count 4.8 K/mcL (4.3-11.1)
[2022-07-08] MEDS: *HR* Heparin 5,000 UNIT/ML VIAL SQ SCH ×3 (06:03→20:24)
[2022-07-08 06:13] LABS: Albumin 3.4 g/dL (3.5-5.7); Albumin/Globulin Ratio 1.4 (1.1-2.2); Bilirubin,Total 0.3 mg/dL (0.3-1.0); Calcium 7.9 mg/dL (8.6-10.3); Globulin 2.5 g/dL (2.4-3.5); Potassium 3.6 mEq/L (3.5-5.1); Total Protein 5.9 g/dL (6.4-8.9)
[2022-07-08] MEDS: 0.9 % Sodium Chloride 1,000 ML IV SCH (08:18)
[2022-07-08] MEDS ORDERED: Albuterol 2.5 MG/3 ML NEBULIZER IH PRN (08:48)
[2022-07-08] MEDS: predniSONE 20 MG TABLET PO SCH (09:58)
[2022-07-08] MEDS: Nicotine 14 MG PATCH.TD24 TD SCH (09:59)
[2022-07-08] MEDS: Albuterol 2.5 MG/3 ML NEBULIZER IH SCH ×4 (10:52→23:02)
[2022-07-08 11:08] LABS: Influenza A PCR Negative (Negative); Influenza B PCR Negative (Negative); Resp. Syncytial Virus PCR Negative (Negative)
[2022-07-08] MEDS: Methadone Oral Concentrate 50 MG/5 ML UDC PO SCH (11:29)
[2022-07-08 13:22] LABS: SARS-CoV-2 by PCR (In House) Negative (Negative)
[2022-07-08] MEDS ORDERED: Vancomycin 1,500 MG/265 ML IV.SOLN IVPB ONE (20:00)
[2022-07-09] MEDS: Clindamycin 600 MG/50 ML 600 MG/50 ML IV.SOLN IVPB SCH ×2 (02:17→09:11)
[2022-07-09] MEDS: Albuterol 2.5 MG/3 ML NEBULIZER IH SCH ×3 (04:04→11:28)
[2022-07-09] MEDS: *HR* Heparin 5,000 UNIT/ML VIAL SQ SCH (04:45)
[2022-07-09] MEDS: Cefepime HCl 2,000 MG in 0.9 % Sodium Chloride 10 ML IVP SCH (09:10)
[2022-07-09] MEDS: Methadone Oral Concentrate 50 MG/5 ML UDC PO SCH (09:13)
[2022-07-09] MEDS: Nicotine 14 MG PATCH.TD24 TD SCH (09:14)
[2022-07-09] MEDS: predniSONE 20 MG TABLET PO SCH (09:19)
[2022-07-09 11:32] VITALS: O2SAT 97
[2022-07-09] MEDS ORDERED: cephALEXin 500 MG CAPSULE PO SCH (13:00)
[2022-07-09] MEDS ORDERED: Doxycycline 100 MG CAPSULE PO SCH (21:00)
== END 2022-07-09 14:10 | disposition home or self-care (01) ==
LOC: EMEROOARM 13:06 → 3NENU 13:06 → SUATTDRO 21:34 → 3NENU 22:40
PROVIDERS: ADMIT Internal Medicine; ATTEND Nurse Practitioner